=== PATIENT | female | born 1955 | race Caucasian/White ===

== ENCOUNTER 2020-12-19 16:12 | Inpatient (IN) ==
[2020-12-19] MEDS ORDERED: Acetaminophen 325 MG TABLET PO PRN (20:18)
[2020-12-19] MEDS ORDERED: Naloxone 0.4 MG/ML INJ IVP PRN (20:18)
[2020-12-19] MEDS ORDERED: Ondansetron 4 MG/2 ML VIAL IVP PRN (20:18)
[2020-12-19] MEDS ORDERED: Ipratropium/Albuterol Neb 3 ML IH PRN (20:20)
[2020-12-19 20:43] LABS: ABG Base Excess 13 mEq/L (-2 to 3); ABG HCO3 42 mEq/L (21-27); ABG Oxygen Saturation 97 % (95-98); ABG PCO2 73 mmHg (35-45); ABG PH 7.37 pH Units (7.32-7.45); ABG PO2 94 mmHg (85-104); ABG TCO2 44 mEq/L (20-26)
[2020-12-19 20:49] LABS: Hematocrit 42.3 % (35.3-44.9); Hemoglobin 13.1 g/dL (11.5-15.4); Mean Corpuscular Hemoglobin 30.5 pg (28.0-33.3); Mean Corpuscular Volume 98.4 fL (83.0-100.0); Mean Platelet Volume 8.6 fL (9.4-12.4); Platelet Count 317 K/mcL (140-400); Red Cell Distribution Width 13.2 % (11.5-14.5)
[2020-12-19 20:56] LABS: INR 1.3; Prothrombin Time 14.7 Seconds (9.4-12.1)
[2020-12-19 21:13] LABS: Monocytes # 0.5 K/mcL (0.0-1.3); Neutrophils # 6.4 K/mcL (1.6-8.9); Platelet Estimate Normal (Normal); Toxic Granulation Present (Not Present)
[2020-12-19 21:16] LABS: Alanine Aminotransferase 8 Units/L (7-52); Albumin 3.8 g/dL (3.5-5.7); Alkaline Phosphatase 57 Units/L (34-104); Aspartate Amino Transferase 13 Units/L (13-39); BUN/Creatinine Ratio 61 (6-26); Bilirubin,Total 0.2 mg/dL (0.3-1.0); Blood Urea Nitrogen 33 mg/dL (8-23); Calcium 9.9 mg/dL (8.6-10.3); Carbon Dioxide 37 mEq/L (23-29); Chloride 101 mEq/L (98-107); Globulin 3.9 g/dL (2.4-3.5); Glucose 162 mg/dL (70-105); Magnesium 2.5 mg/dL (1.6-2.6); Osmolality,Calculated 317 (280-300); Sodium 148 mEq/L (136-145); Total Protein 7.7 g/dL (6.4-8.9); Troponin I < 0.03 ng/mL (< 0.04); eGFR For African Americans > 60 (> 60); eGFR For Non-African Americans > 60 (> 60)
[2020-12-19 22:10] LABS: Adenovirus Not Detected (Not Detect); Bordetella Pertussis Not Detected (Not Detect); Chlamydophila pneumoniae Not Detected (Not Detect); Coronavirus 229E Not Detected (Not Detect); Coronavirus HKU1 Not Detected (Not Detect); Coronavirus NL63 Not Detected (Not Detect); Coronavirus OC43 Not Detected (Not Detect); Human Metapneumovirus Not Detected (Not Detect); Human Rhinovirus/Enterovirus Not Detected (Not Detect); Influenza A Subtype 2009 H1 Not Detected (Not Detect); Influenza B Not Detected (Not Detect); Mycoplasma pneumoniae Not Detected (Not Detect); Parainfluenza Virus 1 Not Detected (Not Detect); Parainfluenza Virus 2 Not Detected (Not Detect); Parainfluenza Virus 3 Not Detected (Not Detect); Parainfluenza Virus 4 Not Detected (Not Detect); Respiratory Syncytial Virus Not Detected (Not Detect); SARS-CoV-2 Not Detected (Not Detect)
[2020-12-19 22:25] LABS: Bilirubin,Urine Negative (Negative); Blood,Urine Small (Negative); Clarity,Urine Clear (Clear); Color,Urine Yellow (Yellow); Glucose,Urine (UA) Normal (Normal); Ketones,Urine 40 mg/dL (Negative); Leukocyte Esterase,Urine Negative (Negative); Mucus,Urine Few per lpf (None-Few); Nitrite,Urine Negative (Negative); PH,Urine 6.5 pH Units (5.0-8.0); Protein,Urine 70 mg/dL (Neg-Trace); Specific Gravity,Urine > 1.030 (1.010-1.025); Urobilinogen,Urine Normal (Normal); WBC,Urine 0-3 per hpf (0-3)
[2020-12-19 22:27] LABS: Sodium, Urine 30.1 mEq/L
[2020-12-19 22:35] LABS: Amphetamine Screen,Urine Negative ng/mL (Cutoff=1000); Barbiturate Screen,Urine Negative ng/mL (Cutoff=200); Benzodiazepines Screen,Urine Negative ng/mL (Cutoff=200); Cannabinoid Screen,Urine Negative ng/mL (Cutoff = 50); Cocaine Screen,Urine Negative ng/mL (Cutoff= 300); Opiate Screen,Urine Negative ng/mL (Cutoff=300); Phencyclidine Screen,Urine Negative ng/mL (Cutoff=25)
[2020-12-19] MEDS: methylPREDNISolone 125 MG/2 ML VIAL IVP SCH (22:43)
[2020-12-19] MEDS ORDERED: 0.9 % Sodium Chloride 1,000 ML IVC SCH (22:45)
[2020-12-20 01:53] LABS: Basophils # 0.1 K/mcL (0.0-0.2); Basophils % 1.4 %; Hematocrit 42.2 % (35.3-44.9); Hemoglobin 13.3 g/dL (11.5-15.4); Immature Granulocytes % 3.5 % (0-4); Lymphocytes # 0.9 K/mcL (0.6-4.6); Lymphocytes % 12.6 %; Mean Corpuscular HGB Conc 31.5 g/dL (31.6-35.5); Mean Corpuscular Volume 98.4 fL (83.0-100.0); Mean Platelet Volume 8.5 fL (9.4-12.4); Monocytes # 0.3 K/mcL (0.0-1.3); Monocytes % 3.5 %; Neutrophils # 5.7 K/mcL (1.6-8.9); Platelet Count 336 K/mcL (140-400); Red Blood Count 4.29 M/mcL (3.82-4.97); Red Cell Distribution Width 13.2 % (11.5-14.5); White Blood Count 7.2 K/mcL (4.3-11.1)
[2020-12-20 02:23] LABS: BUN/Creatinine Ratio 67 (6-26); Blood Urea Nitrogen 34 mg/dL (8-23); Calcium 9.6 mg/dL (8.6-10.3); Carbon Dioxide 36 mEq/L (23-29); Chloride 102 mEq/L (98-107); Glucose 171 mg/dL (70-105); Osmolality,Calculated 320 (280-300); Platelet Clumps Few (Not Present); Platelet Estimate Normal (Normal); Potassium 3.9 mEq/L (3.5-5.1); Sodium 149 mEq/L (136-145); Thyroid Stimulating Hormone 0.278 mcIU/mL (0.340-5.600); eGFR For African Americans > 60 (> 60); eGFR For Non-African Americans > 60 (> 60)
[2020-12-20 04:01] LABS: ABG Base Excess 13 mEq/L (-2 to 3); ABG HCO3 40 mEq/L (21-27); ABG Oxygen Saturation 91 % (95-98); ABG PCO2 57 mmHg (35-45); ABG PH 7.45 pH Units (7.32-7.45); ABG PO2 60 mmHg (85-104); ABG TCO2 41 mEq/L (20-26)
[2020-12-20 06:32] LABS: BUN/Creatinine Ratio 70 (6-26); Blood Urea Nitrogen 33 mg/dL (8-23); Calcium 9.7 mg/dL (8.6-10.3); Carbon Dioxide 35 mEq/L (23-29); Glucose 162 mg/dL (70-105); eGFR For African Americans > 60 (> 60); eGFR For Non-African Americans > 60 (> 60)
[2020-12-20 06:56] LABS: Chloride 106 mEq/L (98-107); Osmolality,Calculated 317 (280-300); Potassium 3.6 mEq/L (3.5-5.1); Sodium 148 mEq/L (136-145)
[2020-12-20] MEDS ORDERED: D5% in 0.45% NACL 1,000 ML IVC SCH (07:00)
[2020-12-20 07:09] LABS: Triiodothyronine (T3) Free 2.22 pg/mL (2.50-3.90)
[2020-12-20 07:12] LABS: Triiodothyronine (T3) Total 0.54 ng/mL (0.87-1.78)
[2020-12-20] MEDS: methylPREDNISolone 125 MG/2 ML VIAL IVP SCH ×2 (07:24→15:12)
[2020-12-20] MEDS: cefTRIAXone 1,000 MG in 0.9 % Sodium Chloride Mini Bag 100 ML IVPB SCH (08:46)
[2020-12-20] MEDS: Azithromycin 500 MG in 0.9 % Sodium Chloride 250 ML IVPB SCH (09:48)
[2020-12-20 10:50] LABS: BUN/Creatinine Ratio 71 (6-26); Blood Urea Nitrogen 34 mg/dL (8-23); Calcium 9.4 mg/dL (8.6-10.3); Carbon Dioxide 37 mEq/L (23-29); Chloride 104 mEq/L (98-107); Glucose 184 mg/dL (70-105); Osmolality,Calculated 324 (280-300); Potassium 3.6 mEq/L (3.5-5.1); Sodium 151 mEq/L (136-145); eGFR For African Americans > 60 (> 60); eGFR For Non-African Americans > 60 (> 60)
[2020-12-20] MEDS ORDERED: D5% in Water 1,000 ML IVC PRN (17:08)
[2020-12-20] MEDS ORDERED: *HR* Dextrose 50 % in Water (Vial) 50 ML VIAL IVP PRN (17:08)
[2020-12-20] MEDS ORDERED: Dextrose Gel 15 GM/37.5 ML TUBE PO PRN ×2 (17:08)
[2020-12-20] MEDS ORDERED: Saline Nasal Spray 44 ML BOTTLE NS PRN (17:09)
[2020-12-20] MEDS ORDERED: Ipratropium/Albuterol Neb 3 ML IH PRN (17:14)
[2020-12-20 18:56] LABS: Chloride 106 mEq/L (98-107); Potassium 3.3 mEq/L (3.5-5.1); Sodium 151 mEq/L (136-145)
[2020-12-20 19:04] LABS: BUN/Creatinine Ratio 63 (6-26); Blood Urea Nitrogen 33 mg/dL (8-23); Calcium 9.3 mg/dL (8.6-10.3); Carbon Dioxide 32 mEq/L (23-29); Glucose 240 mg/dL (70-105); Osmolality,Calculated 327 (280-300); eGFR For African Americans > 60 (> 60); eGFR For Non-African Americans > 60 (> 60)
[2020-12-20] MEDS: Ipratropium/Albuterol Neb 3 ML IH SCH ×2 (20:30→23:34)
[2020-12-20] MEDS: Budesonide/Formoterol 160/4.5 1 PUFF INH IH SCH (20:30)
[2020-12-20] MEDS: D5% in Water 1,000 ML IVC SCH (22:35)
[2020-12-20] MEDS: Nystatin SUSP 5 ML UD.LIQ PO SCH (22:43)
[2020-12-20] MEDS: Chlorhexidine Rinse 15 ML MOUTHWASH MM SCH (22:43)
[2020-12-21] MEDS: Artificial Tears SOLN 15 ML BOTTLE BOTH EYES SCH ×3 (00:16→21:22)
[2020-12-21] MEDS: methylPREDNISolone 125 MG/2 ML VIAL IVP SCH ×4 (00:17→23:25)
[2020-12-21 00:44] LABS: BUN/Creatinine Ratio 61 (6-26); Blood Urea Nitrogen 33 mg/dL (8-23); Calcium 8.7 mg/dL (8.6-10.3); Carbon Dioxide 38 mEq/L (23-29); Chloride 106 mEq/L (98-107); Glucose 173 mg/dL (70-105); Osmolality,Calculated 319 (280-300); Potassium 3.6 mEq/L (3.5-5.1); Sodium 149 mEq/L (136-145); eGFR For African Americans > 60 (> 60); eGFR For Non-African Americans > 60 (> 60)
[2020-12-21 02:57] LABS: Basophils % 0.1 %; Hematocrit 39.9 % (35.3-44.9); Hemoglobin 12.3 g/dL (11.5-15.4); Immature Granulocytes % 6.3 % (0-4); Lymphocytes # 1.4 K/mcL (0.6-4.6); Lymphocytes % 13.6 %; Mean Corpuscular HGB Conc 30.8 g/dL (31.6-35.5); Mean Corpuscular Hemoglobin 30.9 pg (28.0-33.3); Mean Corpuscular Volume 100.3 fL (83.0-100.0); Mean Platelet Volume 8.5 fL (9.4-12.4); Monocytes # 0.6 K/mcL (0.0-1.3); Monocytes % 5.2 %; Platelet Count 332 K/mcL (140-400); Red Blood Count 3.98 M/mcL (3.82-4.97); Red Cell Distribution Width 13.2 % (11.5-14.5); Segmented Neutrophils % 74.8 %; White Blood Count 10.6 K/mcL (4.3-11.1)
[2020-12-21 03:12] LABS: Neutrophils # 7.9 K/mcL (1.6-8.9)
[2020-12-21 03:13] LABS: Alanine Aminotransferase 7 Units/L (7-52); Albumin 3.3 g/dL (3.5-5.7); Alkaline Phosphatase 44 Units/L (34-104); Aspartate Amino Transferase 13 Units/L (13-39); BUN/Creatinine Ratio 62 (6-26); Bilirubin,Total 0.2 mg/dL (0.3-1.0); Blood Urea Nitrogen 33 mg/dL (8-23); Calcium 8.7 mg/dL (8.6-10.3); Carbon Dioxide 36 mEq/L (23-29); Chloride 108 mEq/L (98-107); Globulin 3.2 g/dL (2.4-3.5); Glucose 175 mg/dL (70-105); Magnesium 2.2 mg/dL (1.6-2.6); Osmolality,Calculated 318 (280-300); Potassium 3.7 mEq/L (3.5-5.1); Sodium 148 mEq/L (136-145); Total Protein 6.5 g/dL (6.4-8.9); eGFR For African Americans > 60 (> 60); eGFR For Non-African Americans > 60 (> 60)
[2020-12-21] MEDS: Ipratropium/Albuterol Neb 3 ML IH SCH ×6 (03:56→23:39)
[2020-12-21 04:41] LABS: Platelet Estimate Normal (Normal)
[2020-12-21] MEDS: *HR* Enoxaparin 40 MG/0.4 ML SYRINGE SQ SCH (05:42)
[2020-12-21] MEDS: Budesonide/Formoterol 160/4.5 1 PUFF INH IH SCH ×2 (07:41→19:21)
[2020-12-21] MEDS: cefTRIAXone 1,000 MG in 0.9 % Sodium Chloride Mini Bag 100 ML IVPB SCH (08:21)
[2020-12-21] MEDS: BuPROPion XL (24 HR) 150 MG TABLET PO SCH (08:29)
[2020-12-21] MEDS: Nystatin SUSP 5 ML UD.LIQ PO SCH ×4 (08:29→21:21)
[2020-12-21] MEDS: Chlorhexidine Rinse 15 ML MOUTHWASH MM SCH ×2 (08:29→21:21)
[2020-12-21] MEDS: Levothyroxine 25 MCG TABLET PO SCH (08:30)
[2020-12-21] MEDS: Nicotine 14 MG PATCH.TD24 TD SCH (08:31)
[2020-12-21] MEDS: Fluticasone Propionate Nasal 50 MCG/SPRAY BOTTLE NS SCH (08:32)
[2020-12-21] MEDS: Azithromycin 500 MG in 0.9 % Sodium Chloride 250 ML IVPB SCH (08:46)
[2020-12-21 12:39] LABS: BUN/Creatinine Ratio 49 (6-26); Blood Urea Nitrogen 29 mg/dL (8-23); Calcium 8.3 mg/dL (8.6-10.3); Carbon Dioxide 36 mEq/L (23-29); Chloride 104 mEq/L (98-107); Glucose 187 mg/dL (70-105); Osmolality,Calculated 315 (280-300); Potassium 3.3 mEq/L (3.5-5.1); Sodium 147 mEq/L (136-145); eGFR For African Americans > 60 (> 60); eGFR For Non-African Americans > 60 (> 60)
[2020-12-21] MEDS ORDERED: Melatonin 3 MG TABLET PO PRN (16:36)
[2020-12-21] MEDS: Doxycycline 100 MG in 0.9 % Sodium Chloride Mini Bag 100 ML IVPB SCH (17:00)
[2020-12-21] MEDS: D5% in Water 1,000 ML IVC SCH (17:05)
[2020-12-21 18:14] LABS: BUN/Creatinine Ratio 47 (6-26); Blood Urea Nitrogen 28 mg/dL (8-23); Calcium 8.3 mg/dL (8.6-10.3); Carbon Dioxide 35 mEq/L (23-29); Chloride 102 mEq/L (98-107); Glucose 183 mg/dL (70-105); Osmolality,Calculated 308 (280-300); Potassium 3.2 mEq/L (3.5-5.1); Sodium 144 mEq/L (136-145); eGFR For African Americans > 60 (> 60); eGFR For Non-African Americans > 60 (> 60)
[2020-12-21] MEDS: Lactobacillus 1 EACH CAP.SPRINK PO SCH (21:21)
[2020-12-21 23:47] LABS: BUN/Creatinine Ratio 48 (6-26); Blood Urea Nitrogen 23 mg/dL (8-23); Calcium 7.8 mg/dL (8.6-10.3); Carbon Dioxide 32 mEq/L (23-29); Chloride 103 mEq/L (98-107); Glucose 162 mg/dL (70-105); Osmolality,Calculated 303 (280-300); Potassium 3.6 mEq/L (3.5-5.1); Sodium 143 mEq/L (136-145); eGFR For African Americans > 60 (> 60); eGFR For Non-African Americans > 60 (> 60)
[2020-12-22] MEDS: Ipratropium/Albuterol Neb 3 ML IH SCH ×6 (03:29→23:36)
[2020-12-22] MEDS: *HR* Enoxaparin 40 MG/0.4 ML SYRINGE SQ SCH (05:32)
[2020-12-22] MEDS: Doxycycline 100 MG in 0.9 % Sodium Chloride Mini Bag 100 ML IVPB SCH ×2 (05:33→16:43)
[2020-12-22 07:00] LABS: Hematocrit 38.1 % (35.3-44.9); Hemoglobin 12.3 g/dL (11.5-15.4); Lymphocytes # 1.5 K/mcL (0.6-4.6); Mean Corpuscular HGB Conc 32.3 g/dL (31.6-35.5); Mean Corpuscular Hemoglobin 30.8 pg (28.0-33.3); Mean Corpuscular Volume 95.3 fL (83.0-100.0); Mean Platelet Volume 8.6 fL (9.4-12.4); Platelet Count 286 K/mcL (140-400); White Blood Count 12.8 K/mcL (4.3-11.1)
[2020-12-22 07:20] LABS: BUN/Creatinine Ratio 45 (6-26); Blood Urea Nitrogen 22 mg/dL (8-23); Calcium 7.9 mg/dL (8.6-10.3); Carbon Dioxide 33 mEq/L (23-29); Chloride 102 mEq/L (98-107); Glucose 153 mg/dL (70-105); Osmolality,Calculated 298 (280-300); Potassium 3.7 mEq/L (3.5-5.1); Sodium 141 mEq/L (136-145); eGFR For African Americans > 60 (> 60); eGFR For Non-African Americans > 60 (> 60)
[2020-12-22 07:21] LABS: Magnesium 1.8 mg/dL (1.6-2.6)
[2020-12-22 07:52] LABS: Monocytes # 0.8 K/mcL (0.0-1.3)
[2020-12-22 07:53] LABS: Platelet Estimate Normal (Normal)
[2020-12-22] MEDS: Budesonide/Formoterol 160/4.5 1 PUFF INH IH SCH ×2 (08:02→20:12)
[2020-12-22] MEDS: BuPROPion XL (24 HR) 150 MG TABLET PO SCH (09:34)
[2020-12-22] MEDS: Multivit/Ca/Min/Fe/FA 1 TAB TABLET PO SCH (09:34)
[2020-12-22] MEDS: Nicotine 14 MG PATCH.TD24 TD SCH (09:34)
[2020-12-22] MEDS: Lactobacillus 1 EACH CAP.SPRINK PO SCH ×2 (09:35→22:05)
[2020-12-22] MEDS: Nystatin SUSP 5 ML UD.LIQ PO SCH ×4 (09:35→22:05)
[2020-12-22] MEDS: Chlorhexidine Rinse 15 ML MOUTHWASH MM SCH ×2 (09:35→22:05)
[2020-12-22] MEDS: Levothyroxine 25 MCG TABLET PO SCH (09:35)
[2020-12-22] MEDS: Azithromycin 500 MG in 0.9 % Sodium Chloride 250 ML IVPB SCH (09:40)
[2020-12-22] MEDS: cefTRIAXone 1,000 MG in 0.9 % Sodium Chloride Mini Bag 100 ML IVPB SCH (09:41)
[2020-12-22] MEDS: Fluticasone Propionate Nasal 50 MCG/SPRAY BOTTLE NS SCH (09:45)
[2020-12-22] MEDS: Artificial Tears SOLN 15 ML BOTTLE BOTH EYES SCH ×2 (09:45→22:05)
[2020-12-22] MEDS: methylPREDNISolone 125 MG/2 ML VIAL IVP SCH ×3 (09:50→23:40)
[2020-12-22] MEDS: Calcium Gluconate 1gm/50mL 1 GM/50 ML BAG IVPB SCH ×2 (11:11→13:00)
[2020-12-22 14:00] LABS: BUN/Creatinine Ratio 38 (6-26); Blood Urea Nitrogen 21 mg/dL (8-23); Calcium 7.8 mg/dL (8.6-10.3); Carbon Dioxide 31 mEq/L (23-29); Chloride 101 mEq/L (98-107); Glucose 150 mg/dL (70-105); Osmolality,Calculated 296 (280-300); Potassium 3.7 mEq/L (3.5-5.1); Sodium 140 mEq/L (136-145); eGFR For African Americans > 60 (> 60); eGFR For Non-African Americans > 60 (> 60)
[2020-12-22 18:09] LABS: BUN/Creatinine Ratio 36 (6-26); Blood Urea Nitrogen 19 mg/dL (8-23); Calcium 7.9 mg/dL (8.6-10.3); Carbon Dioxide 32 mEq/L (23-29); Chloride 100 mEq/L (98-107); Glucose 99 mg/dL (70-105); Osmolality,Calculated 292 (280-300); Potassium 3.9 mEq/L (3.5-5.1); Sodium 140 mEq/L (136-145); eGFR For African Americans > 60 (> 60); eGFR For Non-African Americans > 60 (> 60)
[2020-12-23 00:35] LABS: Hematocrit 37.8 % (35.3-44.9); Hemoglobin 12.3 g/dL (11.5-15.4); Mean Corpuscular HGB Conc 32.5 g/dL (31.6-35.5); Mean Corpuscular Hemoglobin 30.5 pg (28.0-33.3); Mean Corpuscular Volume 93.8 fL (83.0-100.0); Mean Platelet Volume 8.5 fL (9.4-12.4); Monocytes # 0.3 K/mcL (0.0-1.3); Nucleated Red Blood Cells 0.1 /100 WBC (0); Platelet Count 262 K/mcL (140-400); Red Blood Count 4.03 M/mcL (3.82-4.97); Red Cell Distribution Width 12.8 % (11.5-14.5); White Blood Count 14.6 K/mcL (4.3-11.1)
[2020-12-23 00:52] LABS: BUN/Creatinine Ratio 36 (6-26); Blood Urea Nitrogen 17 mg/dL (8-23); Calcium 7.8 mg/dL (8.6-10.3); Carbon Dioxide 30 mEq/L (23-29); Chloride 101 mEq/L (98-107); Glucose 134 mg/dL (70-105); Osmolality,Calculated 292 (280-300); Potassium 4.3 mEq/L (3.5-5.1); Sodium 139 mEq/L (136-145); eGFR For African Americans > 60 (> 60); eGFR For Non-African Americans > 60 (> 60)
[2020-12-23 00:53] LABS: Magnesium 1.7 mg/dL (1.6-2.6); Phosphorous 2.1 mg/dL (2.7-4.5)
[2020-12-23 01:17] LABS: Lymphocytes # 1.5 K/mcL (0.6-4.6); Neutrophils # 12.9 K/mcL (1.6-8.9); Platelet Estimate Normal (Normal); Smudge Cells Present (Not Present); Toxic Granulation Present (Not Present)
[2020-12-23] MEDS: Ipratropium/Albuterol Neb 3 ML IH SCH ×4 (03:58→16:03)
[2020-12-23] MEDS: Doxycycline 100 MG in 0.9 % Sodium Chloride Mini Bag 100 ML IVPB SCH (05:58)
[2020-12-23] MEDS: *HR* Enoxaparin 40 MG/0.4 ML SYRINGE SQ SCH (05:58)
[2020-12-23 06:31] VITALS: BP 135/85
[2020-12-23] MEDS: Budesonide/Formoterol 160/4.5 1 PUFF INH IH SCH (07:28)
[2020-12-23] MEDS: Azithromycin 500 MG in 0.9 % Sodium Chloride 250 ML IVPB SCH (09:44)
[2020-12-23] MEDS: methylPREDNISolone 125 MG/2 ML VIAL IVP SCH (09:45)
[2020-12-23] MEDS: cefTRIAXone 1,000 MG in 0.9 % Sodium Chloride Mini Bag 100 ML IVPB SCH ×2 (09:47→11:45)
[2020-12-23] MEDS: Chlorhexidine Rinse 15 ML MOUTHWASH MM SCH (09:56)
[2020-12-23] MEDS: Fluticasone Propionate Nasal 50 MCG/SPRAY BOTTLE NS SCH (09:57)
[2020-12-23] MEDS: Nystatin SUSP 5 ML UD.LIQ PO SCH ×2 (09:57→13:49)
[2020-12-23] MEDS: Lactobacillus 1 EACH CAP.SPRINK PO SCH (09:58)
[2020-12-23] MEDS: Multivit/Ca/Min/Fe/FA 1 TAB TABLET PO SCH (09:59)
[2020-12-23] MEDS: BuPROPion XL (24 HR) 150 MG TABLET PO SCH (09:59)
[2020-12-23] MEDS: Levothyroxine 25 MCG TABLET PO SCH (09:59)
[2020-12-23] MEDS: Nicotine 14 MG PATCH.TD24 TD SCH (10:01)
[2020-12-23] MEDS: Artificial Tears SOLN 15 ML BOTTLE BOTH EYES SCH (11:46)
[2020-12-23] MEDS: Calcium Gluconate 1gm/50mL 1 GM/50 ML BAG IVPB SCH ×2 (13:47→13:48)
== END 2020-12-23 16:27 | disposition home health service (06) | DRG 177 ==
LOC: 3ANU → SUATTDRO 20:12
PROVIDERS: ADMIT Internal Medicine; ATTEND Internal Medicine

== ENCOUNTER 2021-06-17 10:10 | Inpatient (IN) ==
[2021-06-17] MEDS ORDERED: Ipratropium/Albuterol Neb 3 ML IH ONE (10:22)
[2021-06-17 10:57] LABS: Hematocrit 41.7 % (35.3-44.9); Hemoglobin 13.4 g/dL (11.5-15.4); Mean Corpuscular HGB Conc 32.1 g/dL (31.6-35.5); Mean Corpuscular Hemoglobin 29.3 pg (28.0-33.3); Mean Platelet Volume 8.9 fL (9.4-12.4); Platelet Count 341 K/mcL (140-400); Red Blood Count 4.58 M/mcL (3.82-4.97); Red Cell Distribution Width 12.3 % (11.5-14.5); White Blood Count 7.6 K/mcL (4.3-11.1)
[2021-06-17] MEDS ORDERED: *HR* LORazepam 2 MG/ML VIAL IVP ONE (11:15)
[2021-06-17 11:18] LABS: Alanine Aminotransferase 15 Units/L (7-52); Alkaline Phosphatase 49 Units/L (34-104); Aspartate Amino Transferase 34 Units/L (13-39); BUN/Creatinine Ratio 55 (6-26); Bilirubin,Direct 0.1 mg/dL (0.0-0.2); Bilirubin,Indirect 0.4 mg/dL (0.0-1.0); Bilirubin,Total 0.5 mg/dL (0.3-1.0); Blood Urea Nitrogen 37 mg/dL (8-23); Calcium 10.1 mg/dL (8.6-10.3); Carbon Dioxide 32 mEq/L (23-29); Chloride 102 mEq/L (98-107); Globulin 3.9 g/dL (2.4-3.5); Glucose 146 mg/dL (70-105); Osmolality,Calculated 309 (280-300); Potassium 3.3 mEq/L (3.5-5.1); Sodium 144 mEq/L (136-145); Total Protein 7.9 g/dL (6.4-8.9); Troponin I < 0.03 ng/mL (< 0.04); eGFR For African Americans > 60 (> 60); eGFR For Non-African Americans > 60 (> 60)
[2021-06-17] MEDS ORDERED: Naloxone 0.4 MG/ML INJ IVP PRN (12:29)
[2021-06-17] MEDS ORDERED: Dextrose Gel 15 GM/37.5 ML TUBE PO PRN ×2 (12:34)
[2021-06-17] MEDS ORDERED: *HR* Dextrose 50 % in Water (Syg) 50 ML SYRINGE IVP PRN (12:34)
[2021-06-17] MEDS ORDERED: D5% in Water 1,000 ML IVC PRN (12:34)
[2021-06-17 13:05] LABS: Lactate Dehydrogenase 437 Units/L (140-271)
[2021-06-17 13:08] LABS: C-Reactive Protein 114 mg/L (Less than 10)
[2021-06-17 13:12] LABS: VBG HCO3 31 mEq/L (21-27); VBG PCO2 52 mmHg (41-51); VBG PH 7.39 pH Units (7.32-7.42); VBG PO2 28 mmHg (25-50)
[2021-06-17 13:16] LABS: Ferritin > 1500 ng/mL (10-120)
[2021-06-17] MEDS: Furosemide 20 MG/2 ML VIAL IVP SCH (14:01)
[2021-06-17 14:16] LABS: Monocytes # 0.8 K/mcL (0.0-1.3); Neutrophils # 5.6 K/mcL (1.6-8.9); Platelet Estimate Normal (Normal); Toxic Granulation Present (Not Present)
[2021-06-17 14:17] LABS: Bilirubin,Urine Negative (Negative); Blood,Urine Negative (Negative); Clarity,Urine Clear (Clear); Color,Urine Yellow (Yellow); Glucose,Urine (UA) Normal (Normal); Ketones,Urine Negative (Negative); Leukocyte Esterase,Urine Negative (Negative); Mucus,Urine Few per lpf (None-Few); Nitrite,Urine Negative (Negative); PH,Urine 6.5 pH Units (5.0-8.0); Protein,Urine 70 mg/dL (Neg-Trace); RBC,Urine 0-3 per hpf (0-3); Specific Gravity,Urine 1.028 (1.010-1.025); Urobilinogen,Urine Normal (Normal); WBC,Urine 0-3 per hpf (0-3)
[2021-06-17 14:47] LABS: ABG Base Excess 5 mEq/L (-2 to 3); ABG HCO3 29 mEq/L (21-27); ABG Oxygen Saturation 91 % (95-98); ABG PCO2 42 mmHg (35-45); ABG PH 7.46 pH Units (7.32-7.45); ABG PO2 57 mmHg (85-104); ABG TCO2 31 mEq/L (20-26)
[2021-06-17] MEDS: Ipratropium 1 PUFF INHALER IH SCH ×3 (14:50→20:15)
[2021-06-17 15:12] LABS: Adenovirus Not Detected (Not Detect); Coronavirus 229E Not Detected (Not Detect); Coronavirus HKU1 Not Detected (Not Detect); Coronavirus NL63 Not Detected (Not Detect); Coronavirus OC43 Not Detected (Not Detect)
[2021-06-17 15:16] LABS: Bordetella Pertussis Not Detected (Not Detect); Chlamydophila pneumoniae Not Detected (Not Detect); Human Metapneumovirus Not Detected (Not Detect); Human Rhinovirus/Enterovirus Not Detected (Not Detect); Influenza A Subtype 2009 H1 Not Detected (Not Detect); Influenza B Not Detected (Not Detect); Parainfluenza Virus 1 Not Detected (Not Detect); Parainfluenza Virus 2 Not Detected (Not Detect); Parainfluenza Virus 3 Not Detected (Not Detect); Parainfluenza Virus 4 Not Detected (Not Detect); Respiratory Syncytial Virus Not Detected (Not Detect); SARS-CoV-2 DETECTED (Not Detect)
[2021-06-17 15:17] LABS: Mycoplasma pneumoniae Not Detected (Not Detect)
[2021-06-17] MEDS ORDERED: Isovue-370 500 ML BOTTLE IVP ONE (17:26)
[2021-06-17] MEDS: Artificial Tears SOLN 15 ML BOTTLE BOTH EYES SCH ×2 (17:53→21:43)
[2021-06-17] MEDS: Saliva Stimulant 44.3ml BOTTLE PO SCH ×3 (17:54→21:56)
[2021-06-17] MEDS: Saline Nasal Spray 44 ML BOTTLE NS SCH ×3 (17:54→21:56)
[2021-06-17] MEDS ORDERED: Remdesivir 200 MG in 0.9 % Sodium Chloride 100 ML IVPB ONE (18:00)
[2021-06-17 20:08] LABS: Acetaminophen < 10 mcg/mL (10-20); Ethanol < 10 mg/dL (Less than 10); Salicylate < 2.5 mg/dL (15.0-30.0)
[2021-06-17] MEDS: Budesonide/Formoterol 160/4.5 1 PUFF INH IH SCH (20:15)
[2021-06-17] MEDS: Chlorhexidine Rinse 15 ML MOUTHWASH MM SCH (21:17)
[2021-06-18] MEDS: Ipratropium 1 PUFF INHALER IH SCH ×6 (00:08→20:57)
[2021-06-18 00:55] LABS: Amphetamine Screen,Urine Negative ng/mL (Cutoff=1000); Barbiturate Screen,Urine Negative ng/mL (Cutoff=200); Benzodiazepines Screen,Urine Negative ng/mL (Cutoff=200); Cannabinoid Screen,Urine Negative ng/mL (Cutoff = 50); Cocaine Screen,Urine Negative ng/mL (Cutoff= 300); Opiate Screen,Urine Positive ng/mL (Cutoff=300); Phencyclidine Screen,Urine Negative ng/mL (Cutoff=25)
[2021-06-18] MEDS: *HR* Enoxaparin 40 MG/0.4 ML SYRINGE SQ SCH (06:22)
[2021-06-18] MEDS: Budesonide/Formoterol 160/4.5 1 PUFF INH IH SCH ×2 (07:28→21:00)
[2021-06-18] MEDS: Cholecalciferol (D-3) 1,000 UNIT (25MCG) TABLET PO SCH (09:20)
[2021-06-18] MEDS: Chlorhexidine Rinse 15 ML MOUTHWASH MM SCH ×2 (09:21→20:59)
[2021-06-18] MEDS: Furosemide 20 MG/2 ML VIAL IVP SCH (09:21)
[2021-06-18] MEDS: Saline Nasal Spray 44 ML BOTTLE NS SCH ×4 (09:21→20:59)
[2021-06-18] MEDS: Artificial Tears SOLN 15 ML BOTTLE BOTH EYES SCH ×4 (09:22→20:58)
[2021-06-18] MEDS: Saliva Stimulant 44.3ml BOTTLE PO SCH ×4 (09:22→20:58)
[2021-06-18 10:57] LABS: Hematocrit 43.6 % (35.3-44.9); Hemoglobin 14.3 g/dL (11.5-15.4); Lymphocytes # 1.9 K/mcL (0.6-4.6); Mean Corpuscular HGB Conc 32.8 g/dL (31.6-35.5); Mean Corpuscular Hemoglobin 30.3 pg (28.0-33.3); Mean Corpuscular Volume 92.4 fL (83.0-100.0); Mean Platelet Volume 8.8 fL (9.4-12.4); Platelet Count 386 K/mcL (140-400); Red Blood Count 4.72 M/mcL (3.82-4.97); Red Cell Distribution Width 12.6 % (11.5-14.5); White Blood Count 8.7 K/mcL (4.3-11.1)
[2021-06-18 11:08] LABS: Prothrombin Time 22.6 Seconds (9.4-12.1)
[2021-06-18 11:17] LABS: Alanine Aminotransferase 17 Units/L (7-52); Alkaline Phosphatase 54 Units/L (34-104); Aspartate Amino Transferase 40 Units/L (13-39); BUN/Creatinine Ratio 62 (6-26); Bilirubin,Total 0.4 mg/dL (0.3-1.0); Blood Urea Nitrogen 40 mg/dL (8-23); Calcium 9.8 mg/dL (8.6-10.3); Carbon Dioxide 30 mEq/L (23-29); Chloride 106 mEq/L (98-107); Glucose 105 mg/dL (70-105); Lactate Dehydrogenase 459 Units/L (140-271); Magnesium 2.4 mg/dL (1.6-2.6); Osmolality,Calculated 314 (280-300); Phosphorous 3.6 mg/dL (2.7-4.5); Potassium 3.8 mEq/L (3.5-5.1); Sodium 147 mEq/L (136-145); eGFR For African Americans > 60 (> 60); eGFR For Non-African Americans > 60 (> 60)
[2021-06-18 11:22] LABS: Monocytes # 0.4 K/mcL (0.0-1.3); Neutrophils # 6.3 K/mcL (1.6-8.9)
[2021-06-18 11:23] LABS: Platelet Estimate Normal (Normal)
[2021-06-18 11:24] LABS: Thyroid Stimulating Hormone 0.542 mcIU/mL (0.340-5.600)
[2021-06-18 11:40] LABS: Folate 10.4 ng/mL (3.0-16.0)
[2021-06-18 11:51] LABS: Vitamin B12 > 1500 pg/mL (250-1100)
[2021-06-18 13:43] LABS: C-Reactive Protein 78 mg/L (Less than 10); Ferritin > 1500 ng/mL (10-120)
[2021-06-18] MEDS: Remdesivir 100 MG in 0.9 % Sodium Chloride 100 ML IVPB SCH (17:04)
[2021-06-18 22:13] LABS: VBG HCO3 30 mEq/L (21-27); VBG PCO2 46 mmHg (41-51); VBG PH 7.42 pH Units (7.32-7.42); VBG PO2 46 mmHg (25-50)
[2021-06-19] MEDS: Ipratropium 1 PUFF INHALER IH SCH ×7 (00:55→23:53)
[2021-06-19 05:31] LABS: INR 2.1; Prothrombin Time 23.5 Seconds (9.4-12.1)
[2021-06-19 05:45] LABS: Alanine Aminotransferase 17 Units/L (7-52); Alkaline Phosphatase 50 Units/L (34-104); Aspartate Amino Transferase 30 Units/L (13-39); BUN/Creatinine Ratio 89 (6-26); Bilirubin,Total 0.5 mg/dL (0.3-1.0); Blood Urea Nitrogen 64 mg/dL (8-23); Calcium 9.4 mg/dL (8.6-10.3); Carbon Dioxide 30 mEq/L (23-29); Chloride 110 mEq/L (98-107); Glucose 92 mg/dL (70-105); Osmolality,Calculated 330 (280-300); Potassium 3.7 mEq/L (3.5-5.1); Sodium 151 mEq/L (136-145); eGFR For African Americans > 60 (> 60); eGFR For Non-African Americans > 60 (> 60)
[2021-06-19] MEDS: *HR* Enoxaparin 40 MG/0.4 ML SYRINGE SQ SCH (06:12)
[2021-06-19] MEDS ORDERED: D5% in Water 1,000 ML IVC SCH (07:15)
[2021-06-19] MEDS ORDERED: Famotidine 20 MG TABLET PO SCH (07:30)
[2021-06-19] MEDS: BuPROPion XL (24 HR) 150 MG TABLET PO SCH (07:48)
[2021-06-19] MEDS: PARoxetine 20 MG TABLET PO SCH (07:48)
[2021-06-19] MEDS: Cholecalciferol (D-3) 1,000 UNIT (25MCG) TABLET PO SCH (07:48)
[2021-06-19] MEDS: Artificial Tears SOLN 15 ML BOTTLE BOTH EYES SCH ×4 (07:49→22:42)
[2021-06-19] MEDS: Chlorhexidine Rinse 15 ML MOUTHWASH MM SCH ×2 (07:49→21:59)
[2021-06-19] MEDS: Saline Nasal Spray 44 ML BOTTLE NS SCH ×4 (07:49→22:00)
[2021-06-19] MEDS: Saliva Stimulant 44.3ml BOTTLE PO SCH ×4 (07:49→22:00)
[2021-06-19] MEDS: Budesonide/Formoterol 160/4.5 1 PUFF INH IH SCH ×2 (07:57→20:10)
[2021-06-19] MEDS ORDERED: NON-FORMULARY MEDICATION 1 EACH EACH (Esomeprazole Magnesium [Nexium] 40 MG Capsule.Dr) PO SCH (09:00)
[2021-06-19] MEDS ORDERED: NON-FORMULARY MEDICATION 1 EACH EACH (Roflumilast [Daliresp] 500 MCG Tablet) PO SCH (09:00)
[2021-06-19] MEDS: QUEtiapine Fumarate 25 MG TABLET PO SCH ×2 (12:55→22:42)
[2021-06-19] MEDS: D5% in Water 1,000 ML IVC SCH (12:56)
[2021-06-19] MEDS: Remdesivir 100 MG in 0.9 % Sodium Chloride 100 ML IVPB SCH (17:12)
[2021-06-19 17:39] LABS: BUN/Creatinine Ratio 86 (6-26); Blood Urea Nitrogen 55 mg/dL (8-23); Carbon Dioxide 29 mEq/L (23-29); Chloride 107 mEq/L (98-107); Glucose 164 mg/dL (70-105); Osmolality,Calculated 319 (280-300); Potassium 3.8 mEq/L (3.5-5.1); Sodium 145 mEq/L (136-145); eGFR For African Americans > 60 (> 60); eGFR For Non-African Americans > 60 (> 60)
[2021-06-20] MEDS: Ipratropium 1 PUFF INHALER IH SCH ×5 (04:30→20:42)
[2021-06-20] MEDS: *HR* Enoxaparin 40 MG/0.4 ML SYRINGE SQ SCH (06:33)
[2021-06-20 06:55] LABS: Hematocrit 47.7 % (35.3-44.9); Hemoglobin 15.5 g/dL (11.5-15.4); Mean Corpuscular HGB Conc 32.5 g/dL (31.6-35.5); Mean Corpuscular Hemoglobin 30.5 pg (28.0-33.3); Mean Corpuscular Volume 93.7 fL (83.0-100.0); Mean Platelet Volume 8.7 fL (9.4-12.4); Platelet Count 493 K/mcL (140-400); Red Blood Count 5.09 M/mcL (3.82-4.97); Red Cell Distribution Width 12.5 % (11.5-14.5); White Blood Count 11.8 K/mcL (4.3-11.1)
[2021-06-20 07:16] LABS: Alanine Aminotransferase 14 Units/L (7-52); Albumin 3.9 g/dL (3.5-5.7); Alkaline Phosphatase 51 Units/L (34-104); Aspartate Amino Transferase 26 Units/L (13-39); BUN/Creatinine Ratio 69 (6-26); Bilirubin,Total 0.5 mg/dL (0.3-1.0); Blood Urea Nitrogen 57 mg/dL (8-23); Calcium 9.2 mg/dL (8.6-10.3); Carbon Dioxide 32 mEq/L (23-29); Chloride 110 mEq/L (98-107); Globulin 3.8 g/dL (2.4-3.5); Glucose 91 mg/dL (70-105); Osmolality,Calculated 325 (280-300); Sodium 150 mEq/L (136-145); Total Protein 7.7 g/dL (6.4-8.9); eGFR For African Americans > 60 (> 60); eGFR For Non-African Americans > 60 (> 60)
[2021-06-20 07:21] LABS: INR 2.3; Prothrombin Time 25.9 Seconds (9.4-12.1)
[2021-06-20] MEDS: Budesonide/Formoterol 160/4.5 1 PUFF INH IH SCH ×2 (07:56→20:44)
[2021-06-20] MEDS: Artificial Tears SOLN 15 ML BOTTLE BOTH EYES SCH ×4 (08:00→21:51)
[2021-06-20] MEDS: D5% in Water 1,000 ML IVC SCH ×4 (08:00→21:51)
[2021-06-20] MEDS: Saliva Stimulant 44.3ml BOTTLE PO SCH ×4 (08:01→20:50)
[2021-06-20] MEDS: Saline Nasal Spray 44 ML BOTTLE NS SCH ×4 (08:01→20:50)
[2021-06-20] MEDS: Chlorhexidine Rinse 15 ML MOUTHWASH MM SCH ×2 (08:02→20:50)
[2021-06-20 08:25] LABS: ABG Base Excess 7 mEq/L (-2 to 3); ABG Chloride 109 mEq/L (98-107); ABG Glucose 139 mg/dL (60-95); ABG HCO3 30 mEq/L (21-27); ABG Ionized Calcium 1.21 mmol/L (1.15-1.35); ABG Oxygen Saturation 85 % (95-98); ABG PCO2 35 mmHg (35-45); ABG PH 7.54 pH Units (7.32-7.45); ABG PO2 44 mmHg (85-104); ABG TCO2 31 mEq/L (20-26); Blood Gas Modality NIV
[2021-06-20] MEDS: BuPROPion XL (24 HR) 150 MG TABLET PO SCH (10:12)
[2021-06-20] MEDS: QUEtiapine Fumarate 25 MG TABLET PO SCH ×2 (10:12→20:51)
[2021-06-20] MEDS: Cholecalciferol (D-3) 1,000 UNIT (25MCG) TABLET PO SCH (10:12)
[2021-06-20] MEDS: PARoxetine 20 MG TABLET PO SCH (10:12)
[2021-06-20 15:04] LABS: BUN/Creatinine Ratio 75 (6-26); Blood Urea Nitrogen 49 mg/dL (8-23); Calcium 8.5 mg/dL (8.6-10.3); Carbon Dioxide 27 mEq/L (23-29); Chloride 107 mEq/L (98-107); Glucose 228 mg/dL (70-105); Osmolality,Calculated 314 (280-300); Potassium 3.9 mEq/L (3.5-5.1); Sodium 142 mEq/L (136-145); eGFR For African Americans > 60 (> 60); eGFR For Non-African Americans > 60 (> 60)
[2021-06-20] MEDS: Remdesivir 100 MG in 0.9 % Sodium Chloride 100 ML IVPB SCH (18:02)
[2021-06-21] MEDS: Ipratropium 1 PUFF INHALER IH SCH ×6 (00:13→20:24)
[2021-06-21 02:26] LABS: Hematocrit 38.7 % (35.3-44.9); Mean Corpuscular HGB Conc 33.1 g/dL (31.6-35.5); Mean Corpuscular Hemoglobin 30.6 pg (28.0-33.3); Mean Corpuscular Volume 92.6 fL (83.0-100.0); Mean Platelet Volume 8.8 fL (9.4-12.4); Platelet Count 369 K/mcL (140-400); Red Blood Count 4.18 M/mcL (3.82-4.97); Red Cell Distribution Width 12.4 % (11.5-14.5); White Blood Count 7.4 K/mcL (4.3-11.1)
[2021-06-21 02:29] LABS: Hemoglobin 12.8 g/dL (11.5-15.4)
[2021-06-21 02:34] LABS: INR 2.6; Prothrombin Time 29.2 Seconds (9.4-12.1)
[2021-06-21 02:44] LABS: Alanine Aminotransferase 12 Units/L (7-52); Albumin 3.2 g/dL (3.5-5.7); Alkaline Phosphatase 43 Units/L (34-104); Aspartate Amino Transferase 19 Units/L (13-39); BUN/Creatinine Ratio 60 (6-26); Bilirubin,Total 0.4 mg/dL (0.3-1.0); Blood Urea Nitrogen 38 mg/dL (8-23); Calcium 8.1 mg/dL (8.6-10.3); Carbon Dioxide 27 mEq/L (23-29); Chloride 105 mEq/L (98-107); Globulin 3.1 g/dL (2.4-3.5); Glucose 129 mg/dL (70-105); Osmolality,Calculated 301 (280-300); Potassium 3.7 mEq/L (3.5-5.1); Sodium 140 mEq/L (136-145); Total Protein 6.3 g/dL (6.4-8.9); eGFR For African Americans > 60 (> 60); eGFR For Non-African Americans > 60 (> 60)
[2021-06-21] MEDS: D5% in Water 1,000 ML IVC SCH (04:11)
[2021-06-21] MEDS: *HR* Enoxaparin 30 MG/0.3 ML SYRINGE SQ SCH (05:09)
[2021-06-21] MEDS: Budesonide/Formoterol 160/4.5 1 PUFF INH IH SCH ×2 (08:59→20:24)
[2021-06-21] MEDS: Artificial Tears SOLN 15 ML BOTTLE BOTH EYES SCH ×4 (09:46→20:59)
[2021-06-21] MEDS: PARoxetine 20 MG TABLET PO SCH (09:47)
[2021-06-21] MEDS: Cholecalciferol (D-3) 1,000 UNIT (25MCG) TABLET PO SCH (09:47)
[2021-06-21] MEDS: Saliva Stimulant 44.3ml BOTTLE PO SCH ×4 (09:47→20:59)
[2021-06-21] MEDS: Saline Nasal Spray 44 ML BOTTLE NS SCH ×4 (09:47→20:59)
[2021-06-21] MEDS: BuPROPion XL (24 HR) 150 MG TABLET PO SCH (09:48)
[2021-06-21] MEDS: Chlorhexidine Rinse 15 ML MOUTHWASH MM SCH ×2 (09:49→20:58)
[2021-06-21] MEDS: Lacri-Lube 3.5 GM TUBE BOTH EYES SCH ×2 (10:11→20:58)
[2021-06-21] MEDS: QUEtiapine Fumarate 25 MG TABLET PO SCH (12:57)
[2021-06-21] MEDS ORDERED: *HR* Phytonadione 5 MG TABLET PO ONE (15:12)
[2021-06-21] MEDS: Remdesivir 100 MG in 0.9 % Sodium Chloride 100 ML IVPB SCH (17:26)
[2021-06-22] MEDS: Ipratropium 1 PUFF INHALER IH SCH ×6 (00:06→20:03)
[2021-06-22] MEDS: *HR* Enoxaparin 30 MG/0.3 ML SYRINGE SQ SCH (05:44)
[2021-06-22 06:41] LABS: Hematocrit 36.5 % (35.3-44.9); Hemoglobin 12.3 g/dL (11.5-15.4); Mean Corpuscular HGB Conc 33.7 g/dL (31.6-35.5); Mean Corpuscular Hemoglobin 31.1 pg (28.0-33.3); Mean Corpuscular Volume 92.2 fL (83.0-100.0); Mean Platelet Volume 8.8 fL (9.4-12.4); Platelet Count 357 K/mcL (140-400); Red Blood Count 3.96 M/mcL (3.82-4.97); Red Cell Distribution Width 12.1 % (11.5-14.5); White Blood Count 8.3 K/mcL (4.3-11.1)
[2021-06-22 06:49] LABS: INR 1.3; Prothrombin Time 14.4 Seconds (9.4-12.1)
[2021-06-22 07:07] LABS: Monocytes # 0.2 K/mcL (0.0-1.3); Neutrophils # 7.1 K/mcL (1.6-8.9); Platelet Estimate Normal (Normal)
[2021-06-22] MEDS: Cholecalciferol (D-3) 1,000 UNIT (25MCG) TABLET PO SCH (07:49)
[2021-06-22] MEDS: PARoxetine 20 MG TABLET PO SCH (07:49)
[2021-06-22] MEDS: BuPROPion XL (24 HR) 150 MG TABLET PO SCH (07:49)
[2021-06-22] MEDS: Artificial Tears SOLN 15 ML BOTTLE BOTH EYES SCH ×4 (07:50→20:16)
[2021-06-22] MEDS: Lacri-Lube 3.5 GM TUBE BOTH EYES SCH ×2 (07:50→20:17)
[2021-06-22] MEDS: Saline Nasal Spray 44 ML BOTTLE NS SCH ×4 (07:50→20:17)
[2021-06-22] MEDS: Saliva Stimulant 44.3ml BOTTLE PO SCH ×4 (07:50→20:17)
[2021-06-22] MEDS: Chlorhexidine Rinse 15 ML MOUTHWASH MM SCH (07:50)
[2021-06-22 08:19] LABS: Alanine Aminotransferase 9 Units/L (7-52); Albumin 3.2 g/dL (3.5-5.7); Albumin/Globulin Ratio 1.1 (1.1-2.2); Alkaline Phosphatase 40 Units/L (34-104); Aspartate Amino Transferase 18 Units/L (13-39); BUN/Creatinine Ratio 55 (6-26); Bilirubin,Total 0.6 mg/dL (0.3-1.0); Blood Urea Nitrogen 33 mg/dL (8-23); Calcium 8.1 mg/dL (8.6-10.3); Carbon Dioxide 26 mEq/L (23-29); Chloride 104 mEq/L (98-107); Glucose 90 mg/dL (70-105); Osmolality,Calculated 291 (280-300); Potassium 3.8 mEq/L (3.5-5.1); Sodium 137 mEq/L (136-145); Total Protein 6.2 g/dL (6.4-8.9); eGFR For African Americans > 60 (> 60); eGFR For Non-African Americans > 60 (> 60)
[2021-06-22] MEDS: Budesonide/Formoterol 160/4.5 1 PUFF INH IH SCH ×2 (08:30→20:03)
[2021-06-22] MEDS: Acetaminophen 325 MG TABLET PO PRN (15:15)
[2021-06-22] MEDS: Ondansetron 4 MG/2 ML VIAL IVP PRN (15:16)
[2021-06-23] MEDS: Ipratropium 1 PUFF INHALER IH SCH ×6 (00:17→20:34)
[2021-06-23 03:18] LABS: Basophils # 0.1 K/mcL (0.0-0.2); Basophils % 0.5 %; Hematocrit 34.7 % (35.3-44.9); Hemoglobin 12.3 g/dL (11.5-15.4); Immature Granulocytes % 4.4 % (0-4); Lymphocytes # 1.8 K/mcL (0.6-4.6); Lymphocytes % 17.9 %; Mean Corpuscular HGB Conc 35.4 g/dL (31.6-35.5); Mean Corpuscular Hemoglobin 32.5 pg (28.0-33.3); Mean Corpuscular Volume 91.8 fL (83.0-100.0); Mean Platelet Volume 8.8 fL (9.4-12.4); Monocytes # 0.6 K/mcL (0.0-1.3); Monocytes % 6.3 %; Neutrophils # 6.9 K/mcL (1.6-8.9); Platelet Count 351 K/mcL (140-400); Red Blood Count 3.78 M/mcL (3.82-4.97); Segmented Neutrophils % 70.9 %; White Blood Count 9.8 K/mcL (4.3-11.1)
[2021-06-23 03:22] LABS: BUN/Creatinine Ratio 55 (6-26); Blood Urea Nitrogen 34 mg/dL (8-23); Calcium 8.3 mg/dL (8.6-10.3); Carbon Dioxide 27 mEq/L (23-29); Chloride 104 mEq/L (98-107); Glucose 99 mg/dL (70-105); Osmolality,Calculated 290 (280-300); Potassium 4.2 mEq/L (3.5-5.1); Sodium 136 mEq/L (136-145); eGFR For African Americans > 60 (> 60); eGFR For Non-African Americans > 60 (> 60)
[2021-06-23] MEDS: *HR* Enoxaparin 30 MG/0.3 ML SYRINGE SQ SCH (05:41)
[2021-06-23] MEDS: Saliva Stimulant 44.3ml BOTTLE PO SCH ×4 (07:41→19:52)
[2021-06-23] MEDS: Saline Nasal Spray 44 ML BOTTLE NS SCH ×4 (07:41→19:52)
[2021-06-23] MEDS: Lacri-Lube 3.5 GM TUBE BOTH EYES SCH ×2 (07:42→19:53)
[2021-06-23] MEDS: Cholecalciferol (D-3) 1,000 UNIT (25MCG) TABLET PO SCH (07:42)
[2021-06-23] MEDS: Artificial Tears SOLN 15 ML BOTTLE BOTH EYES SCH ×4 (07:42→19:52)
[2021-06-23] MEDS: BuPROPion XL (24 HR) 150 MG TABLET PO SCH (07:43)
[2021-06-23] MEDS: PARoxetine 20 MG TABLET PO SCH (07:43)
[2021-06-23] MEDS: Budesonide/Formoterol 160/4.5 1 PUFF INH IH SCH ×2 (08:27→20:35)
[2021-06-23] MEDS ORDERED: Furosemide 40 MG/4 ML VIAL IVP ONE (11:52)
[2021-06-23] MEDS: Acetaminophen 325 MG TABLET PO PRN (12:50)
[2021-06-23] MEDS: Sennosides/Docusate Sodium TABLET PO SCH (19:53)
[2021-06-24] MEDS: Ipratropium 1 PUFF INHALER IH SCH ×6 (00:30→20:51)
[2021-06-24] MEDS: *HR* Enoxaparin 30 MG/0.3 ML SYRINGE SQ SCH (05:21)
[2021-06-24 05:33] LABS: Basophils # 0.1 K/mcL (0.0-0.2); Basophils % 0.6 %; Hematocrit 40.6 % (35.3-44.9); Hemoglobin 13.5 g/dL (11.5-15.4); Immature Granulocytes % 2.6 % (0-4); Lymphocytes # 2.8 K/mcL (0.6-4.6); Lymphocytes % 21.6 %; Mean Corpuscular HGB Conc 33.3 g/dL (31.6-35.5); Mean Corpuscular Hemoglobin 30.8 pg (28.0-33.3); Mean Corpuscular Volume 92.5 fL (83.0-100.0); Monocytes # 0.6 K/mcL (0.0-1.3); Monocytes % 4.6 %; Neutrophils # 9.1 K/mcL (1.6-8.9); Platelet Count 380 K/mcL (140-400); Red Blood Count 4.39 M/mcL (3.82-4.97); Red Cell Distribution Width 11.9 % (11.5-14.5); Segmented Neutrophils % 70.6 %; White Blood Count 12.9 K/mcL (4.3-11.1)
[2021-06-24 05:48] LABS: BUN/Creatinine Ratio 58 (6-26); Blood Urea Nitrogen 43 mg/dL (8-23); Calcium 8.4 mg/dL (8.6-10.3); Carbon Dioxide 30 mEq/L (23-29); Chloride 101 mEq/L (98-107); Glucose 67 mg/dL (70-105); Osmolality,Calculated 291 (280-300); Sodium 136 mEq/L (136-145); eGFR For African Americans > 60 (> 60); eGFR For Non-African Americans > 60 (> 60)
[2021-06-24] MEDS: PARoxetine 20 MG TABLET PO SCH (07:21)
[2021-06-24] MEDS: Saline Nasal Spray 44 ML BOTTLE NS SCH ×4 (07:21→21:15)
[2021-06-24] MEDS: Artificial Tears SOLN 15 ML BOTTLE BOTH EYES SCH ×4 (07:21→21:15)
[2021-06-24] MEDS: Cholecalciferol (D-3) 1,000 UNIT (25MCG) TABLET PO SCH (07:21)
[2021-06-24] MEDS: Sennosides/Docusate Sodium TABLET PO SCH ×2 (07:21→21:16)
[2021-06-24] MEDS: Saliva Stimulant 44.3ml BOTTLE PO SCH ×4 (07:21→21:15)
[2021-06-24] MEDS: BuPROPion XL (24 HR) 150 MG TABLET PO SCH (07:21)
[2021-06-24] MEDS: Lacri-Lube 3.5 GM TUBE BOTH EYES SCH ×2 (07:22→21:16)
[2021-06-24] MEDS: Budesonide/Formoterol 160/4.5 1 PUFF INH IH SCH ×2 (07:30→20:51)
[2021-06-24] MEDS: Acetaminophen 325 MG TABLET PO PRN (13:53)
[2021-06-24] MEDS: Furosemide 20 MG/2 ML VIAL IVP SCH (13:53)
[2021-06-25] MEDS: Ipratropium 1 PUFF INHALER IH SCH ×7 (00:35→23:57)
[2021-06-25] MEDS: *HR* Enoxaparin 30 MG/0.3 ML SYRINGE SQ SCH (05:20)
[2021-06-25 07:16] LABS: Basophils # 0.1 K/mcL (0.0-0.2); Basophils % 0.3 %; Eosinophils % 0.1 %; Hematocrit 37.8 % (35.3-44.9); Hemoglobin 13.2 g/dL (11.5-15.4); Immature Granulocytes % 2.6 % (0-4); Lymphocytes # 3.6 K/mcL (0.6-4.6); Lymphocytes % 20.8 %; Mean Corpuscular HGB Conc 34.9 g/dL (31.6-35.5); Mean Corpuscular Hemoglobin 32.3 pg (28.0-33.3); Mean Corpuscular Volume 92.4 fL (83.0-100.0); Monocytes # 0.8 K/mcL (0.0-1.3); Monocytes % 4.4 %; Neutrophils # 12.4 K/mcL (1.6-8.9); Platelet Count 371 K/mcL (140-400); Red Blood Count 4.09 M/mcL (3.82-4.97); Red Cell Distribution Width 11.9 % (11.5-14.5); Segmented Neutrophils % 71.8 %; White Blood Count 17.3 K/mcL (4.3-11.1)
[2021-06-25 07:34] LABS: Albumin 3.3 g/dL (3.5-5.7); Albumin/Globulin Ratio 1.1 (1.1-2.2); Bilirubin,Direct 0.2 mg/dL (0.0-0.2); Bilirubin,Indirect 0.5 mg/dL (0.0-1.0); Bilirubin,Total 0.7 mg/dL (0.3-1.0); Total Protein 6.3 g/dL (6.4-8.9)
[2021-06-25 07:35] LABS: BUN/Creatinine Ratio 57 (6-26); Blood Urea Nitrogen 44 mg/dL (8-23); Calcium 8.6 mg/dL (8.6-10.3); Carbon Dioxide 30 mEq/L (23-29); Chloride 98 mEq/L (98-107); Glucose 76 mg/dL (70-105); Osmolality,Calculated 292 (280-300); Potassium 3.6 mEq/L (3.5-5.1); Sodium 136 mEq/L (136-145); eGFR For African Americans > 60 (> 60); eGFR For Non-African Americans > 60 (> 60)
[2021-06-25] MEDS: Budesonide/Formoterol 160/4.5 1 PUFF INH IH SCH ×2 (08:20→20:12)
[2021-06-25] MEDS: BuPROPion XL (24 HR) 150 MG TABLET PO SCH (08:27)
[2021-06-25] MEDS: Furosemide 20 MG/2 ML VIAL IVP SCH (08:27)
[2021-06-25] MEDS: Sennosides/Docusate Sodium TABLET PO SCH ×2 (08:27→21:13)
[2021-06-25] MEDS: PARoxetine 20 MG TABLET PO SCH (08:27)
[2021-06-25] MEDS: Cholecalciferol (D-3) 1,000 UNIT (25MCG) TABLET PO SCH (08:27)
[2021-06-25] MEDS: Saline Nasal Spray 44 ML BOTTLE NS SCH ×4 (08:28→21:13)
[2021-06-25] MEDS: Lacri-Lube 3.5 GM TUBE BOTH EYES SCH (08:29)
[2021-06-25] MEDS: Artificial Tears SOLN 15 ML BOTTLE BOTH EYES SCH ×4 (08:29→21:15)
[2021-06-25] MEDS: Saliva Stimulant 44.3ml BOTTLE PO SCH ×4 (08:29→21:15)
[2021-06-26] MEDS: Lacri-Lube 3.5 GM TUBE BOTH EYES SCH ×3 (02:41→20:38)
[2021-06-26] MEDS: Ipratropium 1 PUFF INHALER IH SCH ×6 (04:02→23:55)
[2021-06-26] MEDS: *HR* Enoxaparin 30 MG/0.3 ML SYRINGE SQ SCH (05:45)
[2021-06-26] MEDS: Budesonide/Formoterol 160/4.5 1 PUFF INH IH SCH ×2 (08:04→20:39)
[2021-06-26] MEDS: Cholecalciferol (D-3) 1,000 UNIT (25MCG) TABLET PO SCH (08:25)
[2021-06-26] MEDS: PARoxetine 20 MG TABLET PO SCH (08:25)
[2021-06-26] MEDS: Sennosides/Docusate Sodium TABLET PO SCH ×2 (08:26→20:37)
[2021-06-26] MEDS: Furosemide 20 MG/2 ML VIAL IVP SCH (08:26)
[2021-06-26] MEDS: BuPROPion XL (24 HR) 150 MG TABLET PO SCH (08:26)
[2021-06-26] MEDS: Artificial Tears SOLN 15 ML BOTTLE BOTH EYES SCH ×4 (08:27→19:05)
[2021-06-26] MEDS: Saline Nasal Spray 44 ML BOTTLE NS SCH ×4 (08:27→19:05)
[2021-06-26] MEDS: Saliva Stimulant 44.3ml BOTTLE PO SCH ×4 (08:28→19:06)
[2021-06-26 13:02] LABS: Basophils # 0.1 K/mcL (0.0-0.2); Basophils % 0.4 %; Hematocrit 39.4 % (35.3-44.9); Hemoglobin 13.8 g/dL (11.5-15.4); Immature Granulocytes % 2.4 % (0-4); Lymphocytes # 2.3 K/mcL (0.6-4.6); Lymphocytes % 11.9 %; Mean Corpuscular Volume 88.5 fL (83.0-100.0); Mean Platelet Volume 8.7 fL (9.4-12.4); Monocytes # 0.4 K/mcL (0.0-1.3); Monocytes % 2.2 %; Neutrophils # 15.7 K/mcL (1.6-8.9); Platelet Count 401 K/mcL (140-400); Red Blood Count 4.45 M/mcL (3.82-4.97); Segmented Neutrophils % 83.1 %; White Blood Count 18.9 K/mcL (4.3-11.1)
[2021-06-26 13:16] LABS: BUN/Creatinine Ratio 58 (6-26); Blood Urea Nitrogen 44 mg/dL (8-23); Carbon Dioxide 28 mEq/L (23-29); Chloride 95 mEq/L (98-107); Glucose 139 mg/dL (70-105); Osmolality,Calculated 291 (280-300); Potassium 3.3 mEq/L (3.5-5.1); Sodium 134 mEq/L (136-145); eGFR For African Americans > 60 (> 60); eGFR For Non-African Americans > 60 (> 60)
[2021-06-27] MEDS: Ipratropium 1 PUFF INHALER IH SCH ×5 (04:54→20:45)
[2021-06-27] MEDS: *HR* Enoxaparin 30 MG/0.3 ML SYRINGE SQ SCH (05:34)
[2021-06-27 08:01] LABS: Basophils # 0.1 K/mcL (0.0-0.2); Basophils % 0.4 %; Hematocrit 40.2 % (35.3-44.9); Hemoglobin 13.4 g/dL (11.5-15.4); Immature Granulocytes % 1.9 % (0-4); Lymphocytes # 3.3 K/mcL (0.6-4.6); Lymphocytes % 17.8 %; Mean Corpuscular HGB Conc 33.3 g/dL (31.6-35.5); Mean Corpuscular Hemoglobin 29.9 pg (28.0-33.3); Mean Corpuscular Volume 89.7 fL (83.0-100.0); Monocytes % 5.3 %; Neutrophils # 13.9 K/mcL (1.6-8.9); Platelet Count 392 K/mcL (140-400); Red Blood Count 4.48 M/mcL (3.82-4.97); Red Cell Distribution Width 12.1 % (11.5-14.5); Segmented Neutrophils % 74.6 %; White Blood Count 18.6 K/mcL (4.3-11.1)
[2021-06-27 08:07] LABS: BUN/Creatinine Ratio 65 (6-26); Blood Urea Nitrogen 48 mg/dL (8-23); Calcium 9.2 mg/dL (8.6-10.3); Carbon Dioxide 30 mEq/L (23-29); Chloride 97 mEq/L (98-107); Glucose 78 mg/dL (70-105); Osmolality,Calculated 291 (280-300); Sodium 135 mEq/L (136-145); eGFR For African Americans > 60 (> 60); eGFR For Non-African Americans > 60 (> 60)
[2021-06-27] MEDS: Budesonide/Formoterol 160/4.5 1 PUFF INH IH SCH ×2 (08:36→20:45)
[2021-06-27] MEDS: PARoxetine 20 MG TABLET PO SCH (10:04)
[2021-06-27] MEDS: BuPROPion XL (24 HR) 150 MG TABLET PO SCH (10:04)
[2021-06-27] MEDS: Sennosides/Docusate Sodium TABLET PO SCH ×2 (10:04→21:48)
[2021-06-27] MEDS: Cholecalciferol (D-3) 1,000 UNIT (25MCG) TABLET PO SCH (10:04)
[2021-06-27] MEDS: Saline Nasal Spray 44 ML BOTTLE NS SCH ×4 (10:05→21:47)
[2021-06-27] MEDS: Artificial Tears SOLN 15 ML BOTTLE BOTH EYES SCH ×4 (10:05→21:47)
[2021-06-27] MEDS: Lacri-Lube 3.5 GM TUBE BOTH EYES SCH ×2 (10:05→21:48)
[2021-06-27] MEDS: Saliva Stimulant 44.3ml BOTTLE PO SCH ×4 (10:26→21:48)
[2021-06-27 12:05] LABS: ABG Base Excess 6 mEq/L (-2 to 3); ABG HCO3 28 mEq/L (21-27); ABG Oxygen Saturation 89 % (95-98); ABG PCO2 32 mmHg (35-45); ABG PH 7.56 pH Units (7.32-7.45); ABG PO2 48 mmHg (85-104); ABG TCO2 29 mEq/L (20-26)
[2021-06-28] MEDS: Ipratropium 1 PUFF INHALER IH SCH ×7 (00:03→23:31)
[2021-06-28 05:53] LABS: Basophils # 0.1 K/mcL (0.0-0.2); Basophils % 0.5 %; Eosinophils % 0.1 %; Hematocrit 37.9 % (35.3-44.9); Hemoglobin 12.5 g/dL (11.5-15.4); Immature Granulocytes % 2.2 % (0-4); Mean Corpuscular Hemoglobin 29.9 pg (28.0-33.3); Mean Corpuscular Volume 90.7 fL (83.0-100.0); Monocytes # 0.8 K/mcL (0.0-1.3); Monocytes % 4.9 %; Neutrophils # 10.1 K/mcL (1.6-8.9); Platelet Count 337 K/mcL (140-400); Red Blood Count 4.18 M/mcL (3.82-4.97); Red Cell Distribution Width 12.3 % (11.5-14.5); Segmented Neutrophils % 66.3 %; White Blood Count 15.2 K/mcL (4.3-11.1)
[2021-06-28] MEDS: *HR* Enoxaparin 30 MG/0.3 ML SYRINGE SQ SCH (06:10)
[2021-06-28 06:44] LABS: BUN/Creatinine Ratio 57 (6-26); Blood Urea Nitrogen 48 mg/dL (8-23); Calcium 8.6 mg/dL (8.6-10.3); Carbon Dioxide 25 mEq/L (23-29); Chloride 100 mEq/L (98-107); Glucose 64 mg/dL (70-105); Osmolality,Calculated 289 (280-300); Potassium 4.6 mEq/L (3.5-5.1); Sodium 134 mEq/L (136-145); eGFR For African Americans > 60 (> 60); eGFR For Non-African Americans > 60 (> 60)
[2021-06-28] MEDS: Budesonide/Formoterol 160/4.5 1 PUFF INH IH SCH ×2 (07:48→20:31)
[2021-06-28] MEDS ORDERED: Furosemide 20 MG/2 ML VIAL IVP SCH (09:00)
[2021-06-28] MEDS: PARoxetine 20 MG TABLET PO SCH (09:57)
[2021-06-28] MEDS: Sennosides/Docusate Sodium TABLET PO SCH ×2 (09:57→20:54)
[2021-06-28] MEDS: Cholecalciferol (D-3) 1,000 UNIT (25MCG) TABLET PO SCH (09:57)
[2021-06-28] MEDS: BuPROPion XL (24 HR) 150 MG TABLET PO SCH (09:57)
[2021-06-28] MEDS: Artificial Tears SOLN 15 ML BOTTLE BOTH EYES SCH ×4 (09:58→20:53)
[2021-06-28] MEDS: Lacri-Lube 3.5 GM TUBE BOTH EYES SCH ×2 (09:58→21:04)
[2021-06-28] MEDS: Saline Nasal Spray 44 ML BOTTLE NS SCH ×4 (09:58→20:53)
[2021-06-28] MEDS: Saliva Stimulant 44.3ml BOTTLE PO SCH ×4 (09:58→20:53)
[2021-06-29 03:30] LABS: Albumin 3.3 g/dL (3.5-5.7); Albumin/Globulin Ratio 1.1 (1.1-2.2); Bilirubin,Direct 0.1 mg/dL (0.0-0.2); Bilirubin,Indirect 0.5 mg/dL (0.0-1.0); Bilirubin,Total 0.6 mg/dL (0.3-1.0); Total Protein 6.3 g/dL (6.4-8.9)
[2021-06-29] MEDS: Ipratropium 1 PUFF INHALER IH SCH ×5 (03:52→20:27)
[2021-06-29] MEDS: *HR* Enoxaparin 30 MG/0.3 ML SYRINGE SQ SCH (06:18)
[2021-06-29] MEDS: Budesonide/Formoterol 160/4.5 1 PUFF INH IH SCH ×2 (08:16→20:27)
[2021-06-29] MEDS: Furosemide 40 MG/4 ML VIAL IVP SCH (09:46)
[2021-06-29] MEDS: Artificial Tears SOLN 15 ML BOTTLE BOTH EYES SCH ×4 (09:47→21:05)
[2021-06-29] MEDS: Sennosides/Docusate Sodium TABLET PO SCH ×2 (09:47→21:05)
[2021-06-29] MEDS: Saliva Stimulant 44.3ml BOTTLE PO SCH ×4 (09:47→21:05)
[2021-06-29] MEDS: PARoxetine 20 MG TABLET PO SCH (09:47)
[2021-06-29] MEDS: Saline Nasal Spray 44 ML BOTTLE NS SCH ×4 (09:47→21:05)
[2021-06-29] MEDS: Cholecalciferol (D-3) 1,000 UNIT (25MCG) TABLET PO SCH (09:47)
[2021-06-29] MEDS: BuPROPion XL (24 HR) 150 MG TABLET PO SCH (09:47)
[2021-06-29] MEDS: Lacri-Lube 3.5 GM TUBE BOTH EYES SCH ×2 (09:48→21:06)
[2021-06-30] MEDS: Ipratropium 1 PUFF INHALER IH SCH ×6 (00:22→20:36)
[2021-06-30] MEDS: *HR* Enoxaparin 30 MG/0.3 ML SYRINGE SQ SCH (05:33)
[2021-06-30 07:10] LABS: Basophils # 0.1 K/mcL (0.0-0.2); Basophils % 0.3 %; Eosinophils # 0.1 K/mcL (0.0-0.6); Eosinophils % 0.5 %; Hematocrit 40.9 % (35.3-44.9); Hemoglobin 13.5 g/dL (11.5-15.4); Immature Granulocytes % 2.1 % (0-4); Mean Corpuscular Hemoglobin 30.1 pg (28.0-33.3); Mean Corpuscular Volume 91.3 fL (83.0-100.0); Mean Platelet Volume 8.8 fL (9.4-12.4); Monocytes # 0.4 K/mcL (0.0-1.3); Neutrophils # 10.6 K/mcL (1.6-8.9); Platelet Count 364 K/mcL (140-400); Red Blood Count 4.48 M/mcL (3.82-4.97); Red Cell Distribution Width 12.5 % (11.5-14.5); Segmented Neutrophils % 73.1 %; White Blood Count 14.5 K/mcL (4.3-11.1)
[2021-06-30] MEDS: Budesonide/Formoterol 160/4.5 1 PUFF INH IH SCH ×2 (07:52→20:36)
[2021-06-30 08:06] LABS: BUN/Creatinine Ratio 45 (6-26); Blood Urea Nitrogen 39 mg/dL (8-23); Calcium 8.8 mg/dL (8.6-10.3); Carbon Dioxide 27 mEq/L (23-29); Chloride 96 mEq/L (98-107); Glucose 76 mg/dL (70-105); Magnesium 2.3 mg/dL (1.6-2.6); Osmolality,Calculated 284 (280-300); Potassium 3.8 mEq/L (3.5-5.1); Sodium 133 mEq/L (136-145); eGFR For African Americans > 60 (> 60); eGFR For Non-African Americans > 60 (> 60)
[2021-06-30] MEDS: Saline Nasal Spray 44 ML BOTTLE NS SCH ×4 (09:05→20:38)
[2021-06-30] MEDS: Saliva Stimulant 44.3ml BOTTLE PO SCH ×4 (09:05→20:39)
[2021-06-30] MEDS: Cholecalciferol (D-3) 1,000 UNIT (25MCG) TABLET PO SCH (10:38)
[2021-06-30] MEDS: Loratadine 10 MG TABLET PO SCH (10:39)
[2021-06-30] MEDS: BuPROPion XL (24 HR) 150 MG TABLET PO SCH (10:39)
[2021-06-30] MEDS: PARoxetine 20 MG TABLET PO SCH (10:39)
[2021-06-30] MEDS: Furosemide 40 MG/4 ML VIAL IVP SCH (10:39)
[2021-06-30] MEDS: Sennosides/Docusate Sodium TABLET PO SCH ×2 (10:39→20:38)
[2021-06-30] MEDS: Artificial Tears SOLN 15 ML BOTTLE BOTH EYES SCH ×4 (10:39→20:38)
[2021-06-30] MEDS: Lacri-Lube 3.5 GM TUBE BOTH EYES SCH ×2 (10:40→20:38)
[2021-06-30] MEDS: Ondansetron 4 MG/2 ML VIAL IVP PRN (14:13)
[2021-06-30] MEDS ORDERED: *HR* Promethazine 25 MG/ML VIAL IM ONE (20:47)
[2021-07-01] MEDS: Ipratropium 1 PUFF INHALER IH SCH ×7 (00:12→23:44)
[2021-07-01] MEDS: *HR* Enoxaparin 30 MG/0.3 ML SYRINGE SQ SCH (05:54)
[2021-07-01 06:03] LABS: BUN/Creatinine Ratio 46 (6-26); Blood Urea Nitrogen 44 mg/dL (8-23); Calcium 8.7 mg/dL (8.6-10.3); Carbon Dioxide 25 mEq/L (23-29); Chloride 97 mEq/L (98-107); Glucose 120 mg/dL (70-105); Magnesium 2.4 mg/dL (1.6-2.6); Osmolality,Calculated 286 (280-300); Potassium 3.9 mEq/L (3.5-5.1); Sodium 132 mEq/L (136-145); eGFR For African Americans > 60 (> 60); eGFR For Non-African Americans 59 (> 60)
[2021-07-01 06:16] LABS: Basophils % 0.2 %; Eosinophils % 0.1 %; Hematocrit 40.3 % (35.3-44.9); Hemoglobin 13.7 g/dL (11.5-15.4); Immature Granulocytes % 0.8 % (0-4); Lymphocytes # 1.5 K/mcL (0.6-4.6); Lymphocytes % 10.2 %; Mean Corpuscular Hemoglobin 30.6 pg (28.0-33.3); Mean Corpuscular Volume 90.2 fL (83.0-100.0); Mean Platelet Volume 9.1 fL (9.4-12.4); Monocytes # 0.4 K/mcL (0.0-1.3); Monocytes % 2.4 %; Neutrophils # 12.6 K/mcL (1.6-8.9); Platelet Count 339 K/mcL (140-400); Red Blood Count 4.47 M/mcL (3.82-4.97); Red Cell Distribution Width 12.2 % (11.5-14.5); Segmented Neutrophils % 86.3 %; White Blood Count 14.6 K/mcL (4.3-11.1)
[2021-07-01] MEDS: Artificial Tears SOLN 15 ML BOTTLE BOTH EYES SCH ×4 (08:40→19:54)
[2021-07-01] MEDS: Saline Nasal Spray 44 ML BOTTLE NS SCH ×4 (08:41→19:54)
[2021-07-01] MEDS: Saliva Stimulant 44.3ml BOTTLE PO SCH ×4 (08:41→19:54)
[2021-07-01] MEDS: PARoxetine 20 MG TABLET PO SCH (08:43)
[2021-07-01] MEDS: Loratadine 10 MG TABLET PO SCH (08:43)
[2021-07-01] MEDS: Lacri-Lube 3.5 GM TUBE BOTH EYES SCH ×2 (08:43→19:54)
[2021-07-01] MEDS: Sennosides/Docusate Sodium TABLET PO SCH ×2 (08:44→19:54)
[2021-07-01] MEDS: BuPROPion XL (24 HR) 150 MG TABLET PO SCH (08:44)
[2021-07-01] MEDS: Cholecalciferol (D-3) 1,000 UNIT (25MCG) TABLET PO SCH (08:44)
[2021-07-01] MEDS: Furosemide 40 MG/4 ML VIAL IVP SCH (08:46)
[2021-07-01] MEDS: Ondansetron 4 MG/2 ML VIAL IVP PRN ×2 (08:54→16:32)
[2021-07-01] MEDS: Budesonide/Formoterol 160/4.5 1 PUFF INH IH SCH ×2 (09:00→19:44)
[2021-07-01] MEDS: levoFLOXacin 750 MG/150 ML 750 MG/150 ML BAG IVPB SCH (19:53)
[2021-07-02] MEDS: Ondansetron 4 MG/2 ML VIAL IVP PRN (00:50)
[2021-07-02] MEDS: *HR* Promethazine 25 MG/ML VIAL IM PRN (01:47)
[2021-07-02 02:56] LABS: Basophils % 0.2 %; Eosinophils % 0.1 %; Hematocrit 37.8 % (35.3-44.9); Hemoglobin 12.7 g/dL (11.5-15.4); Immature Granulocytes % 0.9 % (0-4); Lymphocytes # 1.2 K/mcL (0.6-4.6); Lymphocytes % 8.2 %; Mean Corpuscular HGB Conc 33.6 g/dL (31.6-35.5); Mean Corpuscular Hemoglobin 30.7 pg (28.0-33.3); Mean Corpuscular Volume 91.3 fL (83.0-100.0); Monocytes # 0.6 K/mcL (0.0-1.3); Monocytes % 4.4 %; Neutrophils # 12.2 K/mcL (1.6-8.9); Platelet Count 303 K/mcL (140-400); Red Blood Count 4.14 M/mcL (3.82-4.97); Red Cell Distribution Width 12.3 % (11.5-14.5); Segmented Neutrophils % 86.2 %; White Blood Count 14.1 K/mcL (4.3-11.1)
[2021-07-02] MEDS ORDERED: Prochlorperazine 10 MG/2 ML VIAL IVP PRN (03:01)
[2021-07-02 03:20] LABS: BUN/Creatinine Ratio 45 (6-26); Blood Urea Nitrogen 44 mg/dL (8-23); Calcium 8.5 mg/dL (8.6-10.3); Carbon Dioxide 18 mEq/L (23-29); Chloride 95 mEq/L (98-107); Glucose 136 mg/dL (70-105); Magnesium 2.1 mg/dL (1.6-2.6); Osmolality,Calculated 283 (280-300); Phosphorous 2.3 mg/dL (2.7-4.5); Potassium 3.3 mEq/L (3.5-5.1); Sodium 130 mEq/L (136-145); eGFR For African Americans > 60 (> 60); eGFR For Non-African Americans 57 (> 60)
[2021-07-02] MEDS: Ipratropium 1 PUFF INHALER IH SCH ×6 (03:48→23:29)
[2021-07-02] MEDS: *HR* Enoxaparin 30 MG/0.3 ML SYRINGE SQ SCH (05:57)
[2021-07-02] MEDS: Budesonide/Formoterol 160/4.5 1 PUFF INH IH SCH ×2 (07:35→20:04)
[2021-07-02] MEDS: PARoxetine 20 MG TABLET PO SCH (07:48)
[2021-07-02] MEDS: Sennosides/Docusate Sodium TABLET PO SCH ×2 (07:48→20:12)
[2021-07-02] MEDS: levoFLOXacin 750 MG/150 ML 750 MG/150 ML BAG IVPB SCH (07:48)
[2021-07-02] MEDS: Furosemide 40 MG/4 ML VIAL IVP SCH (07:48)
[2021-07-02] MEDS: Loratadine 10 MG TABLET PO SCH (07:48)
[2021-07-02] MEDS: Artificial Tears SOLN 15 ML BOTTLE BOTH EYES SCH ×4 (07:49→20:12)
[2021-07-02] MEDS: Lacri-Lube 3.5 GM TUBE BOTH EYES SCH ×2 (07:49→20:12)
[2021-07-02] MEDS: BuPROPion XL (24 HR) 150 MG TABLET PO SCH (07:49)
[2021-07-02] MEDS: Saline Nasal Spray 44 ML BOTTLE NS SCH ×4 (07:49→20:12)
[2021-07-02] MEDS: Cholecalciferol (D-3) 1,000 UNIT (25MCG) TABLET PO SCH (07:49)
[2021-07-02] MEDS: Saliva Stimulant 44.3ml BOTTLE PO SCH ×4 (07:49→20:12)
[2021-07-02] MEDS ORDERED: Albumin 25% 25gram/100mL 25 GM/100 ML IV.SOLN IVPB ONE (11:50)
[2021-07-03] MEDS: Ipratropium 1 PUFF INHALER IH SCH ×6 (03:51→23:27)
[2021-07-03] MEDS: *HR* Enoxaparin 30 MG/0.3 ML SYRINGE SQ SCH (05:14)
[2021-07-03] MEDS: Budesonide/Formoterol 160/4.5 1 PUFF INH IH SCH ×2 (08:16→20:42)
[2021-07-03] MEDS: Saline Nasal Spray 44 ML BOTTLE NS SCH ×4 (09:52→21:01)
[2021-07-03] MEDS: Furosemide 40 MG/4 ML VIAL IVP SCH (09:52)
[2021-07-03] MEDS: Lacri-Lube 3.5 GM TUBE BOTH EYES SCH ×2 (09:52→21:02)
[2021-07-03] MEDS: Artificial Tears SOLN 15 ML BOTTLE BOTH EYES SCH ×4 (09:52→21:01)
[2021-07-03] MEDS: Saliva Stimulant 44.3ml BOTTLE PO SCH ×4 (09:52→21:00)
[2021-07-03] MEDS: BuPROPion XL (24 HR) 150 MG TABLET PO SCH (09:53)
[2021-07-03] MEDS: Loratadine 10 MG TABLET PO SCH (09:53)
[2021-07-03] MEDS: Cholecalciferol (D-3) 1,000 UNIT (25MCG) TABLET PO SCH (09:53)
[2021-07-03] MEDS: PARoxetine 20 MG TABLET PO SCH (09:53)
[2021-07-03] MEDS: Sennosides/Docusate Sodium TABLET PO SCH ×2 (09:53→21:04)
[2021-07-03 10:37] LABS: Basophils % 0.1 %; Eosinophils % 0.2 %; Hematocrit 34.8 % (35.3-44.9); Hemoglobin 11.7 g/dL (11.5-15.4); Immature Granulocytes % 0.5 % (0-4); Lymphocytes # 0.9 K/mcL (0.6-4.6); Lymphocytes % 6.5 %; Mean Corpuscular HGB Conc 33.6 g/dL (31.6-35.5); Mean Corpuscular Hemoglobin 29.5 pg (28.0-33.3); Mean Corpuscular Volume 87.7 fL (83.0-100.0); Mean Platelet Volume 9.1 fL (9.4-12.4); Monocytes # 0.5 K/mcL (0.0-1.3); Monocytes % 3.5 %; Neutrophils # 12.3 K/mcL (1.6-8.9); Platelet Count 243 K/mcL (140-400); Red Blood Count 3.97 M/mcL (3.82-4.97); Red Cell Distribution Width 12.4 % (11.5-14.5); Segmented Neutrophils % 89.2 %; White Blood Count 13.8 K/mcL (4.3-11.1)
[2021-07-03 10:56] LABS: BUN/Creatinine Ratio 44 (6-26); Blood Urea Nitrogen 32 mg/dL (8-23); Calcium 8.8 mg/dL (8.6-10.3); Carbon Dioxide 26 mEq/L (23-29); Chloride 99 mEq/L (98-107); Glucose 108 mg/dL (70-105); Magnesium 2.3 mg/dL (1.6-2.6); Osmolality,Calculated 271 (280-300); Potassium 2.8 mEq/L (3.5-5.1); Sodium 127 mEq/L (136-145); eGFR For African Americans > 60 (> 60); eGFR For Non-African Americans > 60 (> 60)
[2021-07-03] MEDS: Ondansetron 4 MG/2 ML VIAL IVP PRN (15:30)
[2021-07-04] MEDS: Ipratropium 1 PUFF INHALER IH SCH ×6 (03:54→23:37)
[2021-07-04] MEDS: Artificial Tears SOLN 15 ML BOTTLE BOTH EYES SCH ×4 (06:55→19:56)
[2021-07-04] MEDS: Saline Nasal Spray 44 ML BOTTLE NS SCH ×4 (06:55→19:56)
[2021-07-04] MEDS: Saliva Stimulant 44.3ml BOTTLE PO SCH ×4 (06:55→19:56)
[2021-07-04] MEDS: *HR* Enoxaparin 30 MG/0.3 ML SYRINGE SQ SCH (06:55)
[2021-07-04] MEDS ORDERED: Albumin 25% 25gram/100mL 25 GM/100 ML IV.SOLN IVPB ONE (08:01)
[2021-07-04] MEDS: Budesonide/Formoterol 160/4.5 1 PUFF INH IH SCH ×2 (08:18→20:02)
[2021-07-04] MEDS ORDERED: levoFLOXacin 750 MG/150 ML 750 MG/150 ML BAG IVPB SCH (09:00)
[2021-07-04] MEDS: Furosemide 40 MG/4 ML VIAL IVP SCH (09:36)
[2021-07-04] MEDS: Loratadine 10 MG TABLET PO SCH (09:37)
[2021-07-04] MEDS: Lacri-Lube 3.5 GM TUBE BOTH EYES SCH ×2 (09:37→20:18)
[2021-07-04] MEDS: BuPROPion XL (24 HR) 150 MG TABLET PO SCH (09:37)
[2021-07-04] MEDS: Sennosides/Docusate Sodium TABLET PO SCH ×2 (09:37→20:17)
[2021-07-04] MEDS: Cholecalciferol (D-3) 1,000 UNIT (25MCG) TABLET PO SCH (09:37)
[2021-07-04] MEDS: PARoxetine 20 MG TABLET PO SCH (09:37)
[2021-07-04] MEDS: *HR* Promethazine 25 MG/ML VIAL IM PRN (13:22)
[2021-07-04] MEDS: polyethylene glycoL 3350 17 GM POWD.PACK PO SCH (16:18)
[2021-07-05] MEDS: Ipratropium 1 PUFF INHALER IH SCH ×6 (03:52→23:53)
[2021-07-05 05:28] LABS: Basophils % 0.3 %; Eosinophils # 0.3 K/mcL (0.0-0.6); Hemoglobin 11.2 g/dL (11.5-15.4); Immature Granulocytes % 0.6 % (0-4); Lymphocytes # 1.1 K/mcL (0.6-4.6); Lymphocytes % 10.2 %; Mean Corpuscular HGB Conc 32.9 g/dL (31.6-35.5); Mean Corpuscular Hemoglobin 29.6 pg (28.0-33.3); Mean Corpuscular Volume 89.9 fL (83.0-100.0); Mean Platelet Volume 9.2 fL (9.4-12.4); Monocytes # 0.6 K/mcL (0.0-1.3); Monocytes % 5.4 %; Neutrophils # 8.4 K/mcL (1.6-8.9); Platelet Count 245 K/mcL (140-400); Red Blood Count 3.78 M/mcL (3.82-4.97); Segmented Neutrophils % 80.5 %; White Blood Count 10.4 K/mcL (4.3-11.1)
[2021-07-05 05:30] LABS: Calcium 9.7 mg/dL (8.6-10.3); Carbon Dioxide 29 mEq/L (23-29); Chloride 99 mEq/L (98-107); Glucose 77 mg/dL (70-105); Magnesium 2.2 mg/dL (1.6-2.6); Phosphorous 2.3 mg/dL (2.7-4.5); Sodium 131 mEq/L (136-145); eGFR For African Americans > 60 (> 60); eGFR For Non-African Americans > 60 (> 60)
[2021-07-05 05:31] LABS: BUN/Creatinine Ratio 46 (6-26); Blood Urea Nitrogen 31 mg/dL (8-23); Osmolality,Calculated 277 (280-300)
[2021-07-05] MEDS: *HR* Enoxaparin 40 MG/0.4 ML SYRINGE SQ SCH (05:41)
[2021-07-05] MEDS: Saline Nasal Spray 44 ML BOTTLE NS SCH ×4 (07:40→21:30)
[2021-07-05] MEDS: Saliva Stimulant 44.3ml BOTTLE PO SCH ×4 (07:40→21:30)
[2021-07-05] MEDS: Sennosides/Docusate Sodium TABLET PO SCH ×2 (07:41→21:32)
[2021-07-05] MEDS: Cholecalciferol (D-3) 1,000 UNIT (25MCG) TABLET PO SCH (07:41)
[2021-07-05] MEDS: Loratadine 10 MG TABLET PO SCH (07:41)
[2021-07-05] MEDS: BuPROPion XL (24 HR) 150 MG TABLET PO SCH (07:41)
[2021-07-05] MEDS: PARoxetine 20 MG TABLET PO SCH (07:41)
[2021-07-05] MEDS: Artificial Tears SOLN 15 ML BOTTLE BOTH EYES SCH ×4 (07:42→21:29)
[2021-07-05] MEDS: polyethylene glycoL 3350 17 GM POWD.PACK PO SCH (07:42)
[2021-07-05] MEDS: Lacri-Lube 3.5 GM TUBE BOTH EYES SCH ×2 (07:42→21:33)
[2021-07-05] MEDS: Budesonide/Formoterol 160/4.5 1 PUFF INH IH SCH ×2 (08:43→20:37)
[2021-07-05] MEDS: levoFLOXacin 750 MG/150 ML 750 MG/150 ML BAG IVPB SCH (12:01)
[2021-07-05] MEDS: Acetaminophen 325 MG TABLET PO PRN (17:08)
[2021-07-05] MEDS ORDERED: Albumin 25% 25gram/100mL 25 GM/100 ML IV.SOLN IVPB ONE (18:09)
[2021-07-06 03:17] LABS: Basophils % 0.4 %; Eosinophils # 0.3 K/mcL (0.0-0.6); Eosinophils % 3.4 %; Hematocrit 31.3 % (35.3-44.9); Hemoglobin 10.1 g/dL (11.5-15.4); Lymphocytes # 1.1 K/mcL (0.6-4.6); Lymphocytes % 12.9 %; Mean Corpuscular HGB Conc 32.3 g/dL (31.6-35.5); Mean Corpuscular Hemoglobin 29.1 pg (28.0-33.3); Mean Corpuscular Volume 90.2 fL (83.0-100.0); Mean Platelet Volume 9.1 fL (9.4-12.4); Monocytes # 0.5 K/mcL (0.0-1.3); Monocytes % 6.4 %; Neutrophils # 6.3 K/mcL (1.6-8.9); Platelet Count 226 K/mcL (140-400); Red Blood Count 3.47 M/mcL (3.82-4.97); Red Cell Distribution Width 13.1 % (11.5-14.5); Segmented Neutrophils % 75.9 %; White Blood Count 8.3 K/mcL (4.3-11.1)
[2021-07-06 03:35] LABS: BUN/Creatinine Ratio 42 (6-26); Blood Urea Nitrogen 28 mg/dL (8-23); Calcium 10.1 mg/dL (8.6-10.3); Carbon Dioxide 29 mEq/L (23-29); Chloride 97 mEq/L (98-107); Glucose 80 mg/dL (70-105); Osmolality,Calculated 278 (280-300); Potassium 3.9 mEq/L (3.5-5.1); Sodium 132 mEq/L (136-145); eGFR For African Americans > 60 (> 60); eGFR For Non-African Americans > 60 (> 60)
[2021-07-06] MEDS: Ipratropium 1 PUFF INHALER IH SCH ×5 (03:57→20:36)
[2021-07-06] MEDS: *HR* Enoxaparin 40 MG/0.4 ML SYRINGE SQ SCH (05:28)
[2021-07-06] MEDS: Budesonide/Formoterol 160/4.5 1 PUFF INH IH SCH ×2 (07:49→20:36)
[2021-07-06] MEDS: BuPROPion XL (24 HR) 150 MG TABLET PO SCH (08:43)
[2021-07-06] MEDS: PARoxetine 20 MG TABLET PO SCH (08:43)
[2021-07-06] MEDS: Cholecalciferol (D-3) 1,000 UNIT (25MCG) TABLET PO SCH (08:43)
[2021-07-06] MEDS: Sennosides/Docusate Sodium TABLET PO SCH ×2 (08:43→20:21)
[2021-07-06] MEDS: Loratadine 10 MG TABLET PO SCH (08:44)
[2021-07-06] MEDS: Artificial Tears SOLN 15 ML BOTTLE BOTH EYES SCH ×3 (08:44→19:47)
[2021-07-06] MEDS: Saliva Stimulant 44.3ml BOTTLE PO SCH ×4 (08:44→20:22)
[2021-07-06] MEDS: Lacri-Lube 3.5 GM TUBE BOTH EYES SCH ×2 (08:45→19:47)
[2021-07-06] MEDS: polyethylene glycoL 3350 17 GM POWD.PACK PO SCH (08:45)
[2021-07-06] MEDS: Saline Nasal Spray 44 ML BOTTLE NS SCH ×4 (08:45→19:47)
[2021-07-06] MEDS: levoFLOXacin 750 MG/150 ML 750 MG/150 ML BAG IVPB SCH (12:26)
[2021-07-06] MEDS: Ondansetron 4 MG/2 ML VIAL IVP PRN (14:26)
[2021-07-07] MEDS: Ipratropium 1 PUFF INHALER IH SCH ×6 (00:03→20:22)
[2021-07-07 05:00] LABS: Hematocrit 33.9 % (35.3-44.9); Hemoglobin 10.9 g/dL (11.5-15.4); Mean Corpuscular HGB Conc 32.2 g/dL (31.6-35.5); Mean Corpuscular Hemoglobin 29.1 pg (28.0-33.3); Mean Corpuscular Volume 90.4 fL (83.0-100.0); Mean Platelet Volume 9.1 fL (9.4-12.4); Platelet Count 236 K/mcL (140-400); Red Blood Count 3.75 M/mcL (3.82-4.97); Red Cell Distribution Width 13.2 % (11.5-14.5); White Blood Count 10.6 K/mcL (4.3-11.1)
[2021-07-07 05:15] LABS: Alanine Aminotransferase 11 Units/L (7-52); Albumin 3.7 g/dL (3.5-5.7); Albumin/Globulin Ratio 1.1 (1.1-2.2); Alkaline Phosphatase 66 Units/L (34-104); Aspartate Amino Transferase 19 Units/L (13-39); BUN/Creatinine Ratio 36 (6-26); Bilirubin,Total 0.7 mg/dL (0.3-1.0); Blood Urea Nitrogen 24 mg/dL (8-23); C-Reactive Protein 252 mg/L (Less than 10); Calcium 10.3 mg/dL (8.6-10.3); Carbon Dioxide 28 mEq/L (23-29); Chloride 97 mEq/L (98-107); Globulin 3.3 g/dL (2.4-3.5); Glucose 100 mg/dL (70-105); Osmolality,Calculated 276 (280-300); Sodium 131 mEq/L (136-145); eGFR For African Americans > 60 (> 60); eGFR For Non-African Americans > 60 (> 60)
[2021-07-07] MEDS: *HR* Enoxaparin 40 MG/0.4 ML SYRINGE SQ SCH (05:35)
[2021-07-07] MEDS: Budesonide/Formoterol 160/4.5 1 PUFF INH IH SCH ×2 (07:49→20:22)
[2021-07-07] MEDS: Acetaminophen 325 MG TABLET PO PRN (08:42)
[2021-07-07] MEDS: Sennosides/Docusate Sodium TABLET PO SCH ×2 (08:42→20:53)
[2021-07-07] MEDS: BuPROPion XL (24 HR) 150 MG TABLET PO SCH (08:42)
[2021-07-07] MEDS: Saliva Stimulant 44.3ml BOTTLE PO SCH ×4 (08:43→19:38)
[2021-07-07] MEDS: Artificial Tears SOLN 15 ML BOTTLE BOTH EYES SCH ×4 (08:43→19:37)
[2021-07-07] MEDS: Cholecalciferol (D-3) 1,000 UNIT (25MCG) TABLET PO SCH (08:43)
[2021-07-07] MEDS: Saline Nasal Spray 44 ML BOTTLE NS SCH ×4 (08:43→19:37)
[2021-07-07] MEDS: Lacri-Lube 3.5 GM TUBE BOTH EYES SCH ×2 (08:43→19:38)
[2021-07-07] MEDS: Loratadine 10 MG TABLET PO SCH (08:43)
[2021-07-07] MEDS: PARoxetine 20 MG TABLET PO SCH (08:43)
[2021-07-07] MEDS: polyethylene glycoL 3350 17 GM POWD.PACK PO SCH (08:44)
[2021-07-07] MEDS: Ondansetron 4 MG/2 ML VIAL IVP PRN (13:13)
[2021-07-07] MEDS: levoFLOXacin 750 MG/150 ML 750 MG/150 ML BAG IVPB SCH (13:13)
[2021-07-07] MEDS: MethylPREDNISolone 40 MG/ML VIAL IVP SCH (19:37)
[2021-07-08] MEDS: Ipratropium 1 PUFF INHALER IH SCH ×6 (00:32→20:10)
[2021-07-08] MEDS ORDERED: Albumin 25% 25gram/100mL 25 GM/100 ML IV.SOLN IVPB ONE (03:13)
[2021-07-08] MEDS: *HR* Enoxaparin 40 MG/0.4 ML SYRINGE SQ SCH (05:04)
[2021-07-08] MEDS: MethylPREDNISolone 40 MG/ML VIAL IVP SCH ×2 (05:04→17:24)
[2021-07-08 05:27] LABS: ABG Base Excess 1 mEq/L (-2 to 3); ABG HCO3 25 mEq/L (21-27); ABG Oxygen Saturation 94 % (95-98); ABG PCO2 35 mmHg (35-45); ABG PH 7.46 pH Units (7.32-7.45); ABG PO2 69 mmHg (85-104); ABG TCO2 26 mEq/L (20-26); Blood Gas Modality 55LPM
[2021-07-08] MEDS: Budesonide/Formoterol 160/4.5 1 PUFF INH IH SCH ×2 (07:42→20:10)
[2021-07-08] MEDS: Lacri-Lube 3.5 GM TUBE BOTH EYES SCH ×2 (09:25→21:15)
[2021-07-08] MEDS: Saline Nasal Spray 44 ML BOTTLE NS SCH ×4 (09:25→21:15)
[2021-07-08] MEDS: Saliva Stimulant 44.3ml BOTTLE PO SCH ×4 (09:25→21:15)
[2021-07-08] MEDS: Artificial Tears SOLN 15 ML BOTTLE BOTH EYES SCH ×4 (09:25→21:15)
[2021-07-08 09:28] LABS: Hemoglobin 10.4 g/dL (11.5-15.4); Mean Corpuscular HGB Conc 32.5 g/dL (31.6-35.5); Mean Corpuscular Hemoglobin 29.6 pg (28.0-33.3); Mean Corpuscular Volume 91.2 fL (83.0-100.0); Platelet Count 225 K/mcL (140-400); Red Blood Count 3.51 M/mcL (3.82-4.97); Red Cell Distribution Width 13.4 % (11.5-14.5); White Blood Count 8.1 K/mcL (4.3-11.1)
[2021-07-08] MEDS: polyethylene glycoL 3350 17 GM POWD.PACK PO SCH (09:32)
[2021-07-08] MEDS: Loratadine 10 MG TABLET PO SCH (09:32)
[2021-07-08] MEDS: Cholecalciferol (D-3) 1,000 UNIT (25MCG) TABLET PO SCH (09:32)
[2021-07-08] MEDS: Sennosides/Docusate Sodium TABLET PO SCH ×2 (09:32→20:54)
[2021-07-08] MEDS: BuPROPion XL (24 HR) 150 MG TABLET PO SCH (09:32)
[2021-07-08] MEDS: PARoxetine 20 MG TABLET PO SCH (09:32)
[2021-07-08 09:45] LABS: Alanine Aminotransferase 9 Units/L (7-52); Albumin 4.2 g/dL (3.5-5.7); Albumin/Globulin Ratio 1.5 (1.1-2.2); Alkaline Phosphatase 59 Units/L (34-104); Aspartate Amino Transferase 15 Units/L (13-39); BUN/Creatinine Ratio 53 (6-26); Bilirubin,Total 0.6 mg/dL (0.3-1.0); Blood Urea Nitrogen 26 mg/dL (8-23); Calcium 10.2 mg/dL (8.6-10.3); Carbon Dioxide 27 mEq/L (23-29); Chloride 99 mEq/L (98-107); Globulin 2.8 g/dL (2.4-3.5); Glucose 111 mg/dL (70-105); Osmolality,Calculated 277 (280-300); Potassium 4.1 mEq/L (3.5-5.1); Sodium 131 mEq/L (136-145); eGFR For African Americans > 60 (> 60); eGFR For Non-African Americans > 60 (> 60)
[2021-07-08 09:49] LABS: C-Reactive Protein 158 mg/L (Less than 10)
[2021-07-08] MEDS: levoFLOXacin 750 MG/150 ML 750 MG/150 ML BAG IVPB SCH (11:04)
[2021-07-09] MEDS: Ipratropium 1 PUFF INHALER IH SCH ×7 (00:04→23:47)
[2021-07-09 04:11] LABS: Hematocrit 33.3 % (35.3-44.9); Hemoglobin 11.2 g/dL (11.5-15.4); Mean Corpuscular HGB Conc 33.6 g/dL (31.6-35.5); Mean Corpuscular Hemoglobin 30.2 pg (28.0-33.3); Mean Corpuscular Volume 89.8 fL (83.0-100.0); Mean Platelet Volume 9.2 fL (9.4-12.4); Platelet Count 269 K/mcL (140-400); Red Blood Count 3.71 M/mcL (3.82-4.97); Red Cell Distribution Width 13.2 % (11.5-14.5); White Blood Count 9.9 K/mcL (4.3-11.1)
[2021-07-09 04:31] LABS: Alanine Aminotransferase 10 Units/L (7-52); Albumin 4.1 g/dL (3.5-5.7); Albumin/Globulin Ratio 1.3 (1.1-2.2); Alkaline Phosphatase 57 Units/L (34-104); Aspartate Amino Transferase 16 Units/L (13-39); BUN/Creatinine Ratio 52 (6-26); Bilirubin,Total 0.5 mg/dL (0.3-1.0); Blood Urea Nitrogen 31 mg/dL (8-23); C-Reactive Protein 100 mg/L (Less than 10); Calcium 10.3 mg/dL (8.6-10.3); Carbon Dioxide 26 mEq/L (23-29); Chloride 98 mEq/L (98-107); Globulin 3.1 g/dL (2.4-3.5); Glucose 116 mg/dL (70-105); Osmolality,Calculated 284 (280-300); Potassium 4.3 mEq/L (3.5-5.1); Sodium 133 mEq/L (136-145); Total Protein 7.2 g/dL (6.4-8.9); eGFR For African Americans > 60 (> 60); eGFR For Non-African Americans > 60 (> 60)
[2021-07-09] MEDS: Pantoprazole 40 MG VIAL IVP SCH (05:37)
[2021-07-09] MEDS: *HR* Enoxaparin 40 MG/0.4 ML SYRINGE SQ SCH (05:38)
[2021-07-09] MEDS: Levothyroxine Sodium 100 MCG VIAL IVP SCH (05:38)
[2021-07-09] MEDS: MethylPREDNISolone 40 MG/ML VIAL IVP SCH ×2 (05:38→17:35)
[2021-07-09] MEDS: PARoxetine 20 MG TABLET PO SCH (07:57)
[2021-07-09] MEDS: BuPROPion XL (24 HR) 150 MG TABLET PO SCH (07:57)
[2021-07-09] MEDS: Saliva Stimulant 44.3ml BOTTLE PO SCH ×4 (07:57→21:57)
[2021-07-09] MEDS: Loratadine 10 MG TABLET PO SCH (07:57)
[2021-07-09] MEDS: Artificial Tears SOLN 15 ML BOTTLE BOTH EYES SCH ×4 (07:57→21:57)
[2021-07-09] MEDS: Saline Nasal Spray 44 ML BOTTLE NS SCH ×4 (07:57→21:56)
[2021-07-09] MEDS: Lacri-Lube 3.5 GM TUBE BOTH EYES SCH ×2 (07:57→21:57)
[2021-07-09] MEDS: Cholecalciferol (D-3) 1,000 UNIT (25MCG) TABLET PO SCH (07:57)
[2021-07-09] MEDS: Sennosides/Docusate Sodium TABLET PO SCH ×2 (07:57→21:56)
[2021-07-09] MEDS: polyethylene glycoL 3350 17 GM POWD.PACK PO SCH (07:57)
[2021-07-09] MEDS: Budesonide/Formoterol 160/4.5 1 PUFF INH IH SCH ×2 (09:00→20:25)
[2021-07-09] MEDS: levoFLOXacin 750 MG/150 ML 750 MG/150 ML BAG IVPB SCH (11:44)
[2021-07-09] MEDS: Melatonin 3 MG TABLET PO PRN (21:56)
[2021-07-09] MEDS: Acetaminophen 325 MG TABLET PO PRN (21:56)
[2021-07-10] MEDS: Ipratropium 1 PUFF INHALER IH SCH ×5 (03:51→19:58)
[2021-07-10] MEDS: MethylPREDNISolone 40 MG/ML VIAL IVP SCH ×2 (05:45→16:55)
[2021-07-10] MEDS: Pantoprazole 40 MG VIAL IVP SCH (05:46)
[2021-07-10] MEDS: Levothyroxine Sodium 100 MCG VIAL IVP SCH (05:46)
[2021-07-10 07:23] LABS: Mean Corpuscular HGB Conc 32.4 g/dL (31.6-35.5); Mean Corpuscular Hemoglobin 29.4 pg (28.0-33.3); Mean Corpuscular Volume 90.9 fL (83.0-100.0); Mean Platelet Volume 9.4 fL (9.4-12.4); Platelet Count 260 K/mcL (140-400); Red Blood Count 3.74 M/mcL (3.82-4.97); Red Cell Distribution Width 13.5 % (11.5-14.5); White Blood Count 8.8 K/mcL (4.3-11.1)
[2021-07-10] MEDS: Budesonide/Formoterol 160/4.5 1 PUFF INH IH SCH (07:35)
[2021-07-10 07:46] LABS: Alanine Aminotransferase 10 Units/L (7-52); Albumin 3.9 g/dL (3.5-5.7); Albumin/Globulin Ratio 1.4 (1.1-2.2); Alkaline Phosphatase 60 Units/L (34-104); Aspartate Amino Transferase 16 Units/L (13-39); BUN/Creatinine Ratio 51 (6-26); Bilirubin,Total 0.4 mg/dL (0.3-1.0); Blood Urea Nitrogen 33 mg/dL (8-23); Calcium 10.2 mg/dL (8.6-10.3); Carbon Dioxide 26 mEq/L (23-29); Chloride 95 mEq/L (98-107); Globulin 2.8 g/dL (2.4-3.5); Glucose 98 mg/dL (70-105); Osmolality,Calculated 281 (280-300); Potassium 4.4 mEq/L (3.5-5.1); Sodium 132 mEq/L (136-145); Total Protein 6.7 g/dL (6.4-8.9); eGFR For African Americans > 60 (> 60); eGFR For Non-African Americans > 60 (> 60)
[2021-07-10] MEDS: Cholecalciferol (D-3) 1,000 UNIT (25MCG) TABLET PO SCH (08:25)
[2021-07-10] MEDS: Loratadine 10 MG TABLET PO SCH (08:25)
[2021-07-10] MEDS: Sennosides/Docusate Sodium TABLET PO SCH ×2 (08:25→19:56)
[2021-07-10] MEDS: Saliva Stimulant 44.3ml BOTTLE PO SCH ×4 (08:26→19:55)
[2021-07-10] MEDS: Lacri-Lube 3.5 GM TUBE BOTH EYES SCH ×2 (08:26→19:56)
[2021-07-10] MEDS: PARoxetine 20 MG TABLET PO SCH (08:26)
[2021-07-10] MEDS: Artificial Tears SOLN 15 ML BOTTLE BOTH EYES SCH ×4 (08:26→19:55)
[2021-07-10] MEDS: BuPROPion XL (24 HR) 150 MG TABLET PO SCH (08:26)
[2021-07-10] MEDS: Saline Nasal Spray 44 ML BOTTLE NS SCH ×4 (08:26→19:56)
[2021-07-10] MEDS: Acetaminophen 325 MG TABLET PO PRN ×2 (08:26→19:54)
[2021-07-10] MEDS: *HR* Enoxaparin 40 MG/0.4 ML SYRINGE SQ SCH (08:26)
[2021-07-10] MEDS: polyethylene glycoL 3350 17 GM POWD.PACK PO SCH (08:27)
[2021-07-10] MEDS: levoFLOXacin 750 MG/150 ML 750 MG/150 ML BAG IVPB SCH (11:08)
[2021-07-10] MEDS: Ondansetron 4 MG/2 ML VIAL IVP PRN (13:17)
[2021-07-10] MEDS: Melatonin 3 MG TABLET PO PRN (19:54)
[2021-07-11] MEDS: Ipratropium 1 PUFF INHALER IH SCH ×6 (00:31→19:55)
[2021-07-11] MEDS: Budesonide/Formoterol 160/4.5 1 PUFF INH IH SCH ×3 (00:31→19:55)
[2021-07-11 03:01] LABS: Hematocrit 29.2 % (35.3-44.9); Hemoglobin 9.6 g/dL (11.5-15.4); Mean Corpuscular HGB Conc 32.9 g/dL (31.6-35.5); Mean Corpuscular Hemoglobin 29.7 pg (28.0-33.3); Mean Corpuscular Volume 90.4 fL (83.0-100.0); Platelet Count 240 K/mcL (140-400); Red Blood Count 3.23 M/mcL (3.82-4.97); Red Cell Distribution Width 13.5 % (11.5-14.5); White Blood Count 10.7 K/mcL (4.3-11.1)
[2021-07-11 03:21] LABS: Alanine Aminotransferase 9 Units/L (7-52); Albumin 3.6 g/dL (3.5-5.7); Albumin/Globulin Ratio 1.3 (1.1-2.2); Alkaline Phosphatase 47 Units/L (34-104); Aspartate Amino Transferase 13 Units/L (13-39); BUN/Creatinine Ratio 39 (6-26); Bilirubin,Total 0.4 mg/dL (0.3-1.0); Blood Urea Nitrogen 24 mg/dL (8-23); C-Reactive Protein 35 mg/L (Less than 10); Calcium 9.8 mg/dL (8.6-10.3); Carbon Dioxide 25 mEq/L (23-29); Chloride 96 mEq/L (98-107); Globulin 2.8 g/dL (2.4-3.5); Glucose 104 mg/dL (70-105); Osmolality,Calculated 278 (280-300); Potassium 4.1 mEq/L (3.5-5.1); Sodium 132 mEq/L (136-145); Total Protein 6.4 g/dL (6.4-8.9); eGFR For African Americans > 60 (> 60); eGFR For Non-African Americans > 60 (> 60)
[2021-07-11] MEDS: Levothyroxine Sodium 100 MCG VIAL IVP SCH (06:45)
[2021-07-11] MEDS: Pantoprazole 40 MG VIAL IVP SCH (06:45)
[2021-07-11] MEDS: MethylPREDNISolone 40 MG/ML VIAL IVP SCH ×2 (06:46→17:56)
[2021-07-11] MEDS: polyethylene glycoL 3350 17 GM POWD.PACK PO SCH (09:19)
[2021-07-11] MEDS: BuPROPion XL (24 HR) 150 MG TABLET PO SCH (09:20)
[2021-07-11] MEDS: PARoxetine 20 MG TABLET PO SCH (09:20)
[2021-07-11] MEDS: Saline Nasal Spray 44 ML BOTTLE NS SCH ×4 (09:20→21:04)
[2021-07-11] MEDS: Sennosides/Docusate Sodium TABLET PO SCH ×2 (09:20→21:06)
[2021-07-11] MEDS: *HR* Enoxaparin 40 MG/0.4 ML SYRINGE SQ SCH (09:20)
[2021-07-11] MEDS: Cholecalciferol (D-3) 1,000 UNIT (25MCG) TABLET PO SCH (09:20)
[2021-07-11] MEDS: Loratadine 10 MG TABLET PO SCH (09:20)
[2021-07-11] MEDS: Lacri-Lube 3.5 GM TUBE BOTH EYES SCH ×2 (09:21→21:05)
[2021-07-11] MEDS: Artificial Tears SOLN 15 ML BOTTLE BOTH EYES SCH ×4 (09:21→21:03)
[2021-07-11] MEDS: Saliva Stimulant 44.3ml BOTTLE PO SCH ×4 (09:21→21:04)
[2021-07-11] MEDS: levoFLOXacin 750 MG/150 ML 750 MG/150 ML BAG IVPB SCH (11:03)
[2021-07-12] MEDS: Ipratropium 1 PUFF INHALER IH SCH ×6 (00:17→21:27)
[2021-07-12 01:28] LABS: Hematocrit 29.2 % (35.3-44.9); Hemoglobin 9.6 g/dL (11.5-15.4); Mean Corpuscular HGB Conc 32.9 g/dL (31.6-35.5); Mean Corpuscular Hemoglobin 30.1 pg (28.0-33.3); Mean Corpuscular Volume 91.5 fL (83.0-100.0); Mean Platelet Volume 8.6 fL (9.4-12.4); Platelet Count 218 K/mcL (140-400); Red Blood Count 3.19 M/mcL (3.82-4.97); Red Cell Distribution Width 13.9 % (11.5-14.5); White Blood Count 10.2 K/mcL (4.3-11.1)
[2021-07-12 01:49] LABS: Alanine Aminotransferase 8 Units/L (7-52); Albumin 3.5 g/dL (3.5-5.7); Albumin/Globulin Ratio 1.3 (1.1-2.2); Alkaline Phosphatase 49 Units/L (34-104); Aspartate Amino Transferase 13 Units/L (13-39); BUN/Creatinine Ratio 44 (6-26); Bilirubin,Total 0.4 mg/dL (0.3-1.0); Blood Urea Nitrogen 24 mg/dL (8-23); Calcium 9.6 mg/dL (8.6-10.3); Carbon Dioxide 27 mEq/L (23-29); Chloride 99 mEq/L (98-107); Globulin 2.6 g/dL (2.4-3.5); Glucose 100 mg/dL (70-105); Osmolality,Calculated 274 (280-300); Potassium 4.5 mEq/L (3.5-5.1); Sodium 130 mEq/L (136-145); Total Protein 6.1 g/dL (6.4-8.9); eGFR For African Americans > 60 (> 60); eGFR For Non-African Americans > 60 (> 60)
[2021-07-12] MEDS: MethylPREDNISolone 40 MG/ML VIAL IVP SCH (05:34)
[2021-07-12] MEDS: Levothyroxine Sodium 100 MCG VIAL IVP SCH (05:36)
[2021-07-12] MEDS: Pantoprazole 40 MG VIAL IVP SCH (05:39)
[2021-07-12] MEDS: *HR* Enoxaparin 40 MG/0.4 ML SYRINGE SQ SCH (05:43)
[2021-07-12] MEDS: Budesonide/Formoterol 160/4.5 1 PUFF INH IH SCH ×2 (07:56→21:27)
[2021-07-12] MEDS: Cholecalciferol (D-3) 1,000 UNIT (25MCG) TABLET PO SCH (09:44)
[2021-07-12] MEDS: Saliva Stimulant 44.3ml BOTTLE PO SCH ×4 (09:44→21:22)
[2021-07-12] MEDS: Saline Nasal Spray 44 ML BOTTLE NS SCH ×4 (09:44→21:22)
[2021-07-12] MEDS: Artificial Tears SOLN 15 ML BOTTLE BOTH EYES SCH ×4 (09:44→21:21)
[2021-07-12] MEDS: Sennosides/Docusate Sodium TABLET PO SCH ×2 (09:44→21:20)
[2021-07-12] MEDS: PARoxetine 20 MG TABLET PO SCH (09:45)
[2021-07-12] MEDS: Lacri-Lube 3.5 GM TUBE BOTH EYES SCH ×2 (09:45→21:22)
[2021-07-12] MEDS: BuPROPion XL (24 HR) 150 MG TABLET PO SCH (09:45)
[2021-07-12] MEDS: Loratadine 10 MG TABLET PO SCH (09:45)
[2021-07-12] MEDS: polyethylene glycoL 3350 17 GM POWD.PACK PO SCH (09:45)
[2021-07-12] MEDS: predniSONE 20 MG TABLET PO SCH ×2 (09:47→16:25)
[2021-07-12] MEDS ORDERED: levoFLOXacin 750 MG TABLET PO SCH (11:00)
[2021-07-12] MEDS: Acetaminophen 325 MG TABLET PO PRN (16:25)
[2021-07-13] MEDS: Ipratropium 1 PUFF INHALER IH SCH ×4 (00:14→11:32)
[2021-07-13 05:04] LABS: Basophils # 0.1 K/mcL (0.0-0.2); Basophils % 0.4 %; Hematocrit 28.4 % (35.3-44.9); Hemoglobin 9.5 g/dL (11.5-15.4); Immature Granulocytes % 3.7 % (0-4); Lymphocytes # 1.3 K/mcL (0.6-4.6); Lymphocytes % 9.2 %; Mean Corpuscular HGB Conc 33.5 g/dL (31.6-35.5); Mean Corpuscular Hemoglobin 29.7 pg (28.0-33.3); Mean Corpuscular Volume 88.8 fL (83.0-100.0); Mean Platelet Volume 8.8 fL (9.4-12.4); Monocytes # 0.6 K/mcL (0.0-1.3); Monocytes % 4.3 %; Platelet Count 234 K/mcL (140-400); Segmented Neutrophils % 82.4 %; White Blood Count 14.5 K/mcL (4.3-11.1)
[2021-07-13 05:31] LABS: BUN/Creatinine Ratio 44 (6-26); Blood Urea Nitrogen 23 mg/dL (8-23); Calcium 9.7 mg/dL (8.6-10.3); Carbon Dioxide 26 mEq/L (23-29); Chloride 97 mEq/L (98-107); Glucose 110 mg/dL (70-105); Osmolality,Calculated 278 (280-300); Potassium 4.3 mEq/L (3.5-5.1); Sodium 132 mEq/L (136-145); eGFR For African Americans > 60 (> 60); eGFR For Non-African Americans > 60 (> 60)
[2021-07-13] MEDS: *HR* Enoxaparin 40 MG/0.4 ML SYRINGE SQ SCH (05:37)
[2021-07-13] MEDS: Budesonide/Formoterol 160/4.5 1 PUFF INH IH SCH ×2 (07:40→21:23)
[2021-07-13] MEDS: Saliva Stimulant 44.3ml BOTTLE PO SCH ×4 (07:43→20:27)
[2021-07-13] MEDS: Artificial Tears SOLN 15 ML BOTTLE BOTH EYES SCH ×4 (07:43→20:27)
[2021-07-13] MEDS: Saline Nasal Spray 44 ML BOTTLE NS SCH ×4 (07:43→20:27)
[2021-07-13] MEDS: predniSONE 20 MG TABLET PO SCH (07:44)
[2021-07-13] MEDS: Sennosides/Docusate Sodium TABLET PO SCH ×2 (07:44→20:28)
[2021-07-13] MEDS: polyethylene glycoL 3350 17 GM POWD.PACK PO SCH (07:44)
[2021-07-13] MEDS: Loratadine 10 MG TABLET PO SCH (07:44)
[2021-07-13] MEDS: BuPROPion XL (24 HR) 150 MG TABLET PO SCH (07:44)
[2021-07-13] MEDS: PARoxetine 20 MG TABLET PO SCH (07:44)
[2021-07-13] MEDS: Lacri-Lube 3.5 GM TUBE BOTH EYES SCH ×2 (07:44→20:28)
[2021-07-13] MEDS: Cholecalciferol (D-3) 1,000 UNIT (25MCG) TABLET PO SCH (07:44)
[2021-07-13] MEDS ORDERED: Furosemide 20 MG/2 ML VIAL IVP SCH (13:45)
[2021-07-13] MEDS: Ipratropium/Albuterol Neb 3 ML IH SCH ×2 (16:06→21:23)
[2021-07-14] MEDS: Ipratropium/Albuterol Neb 3 ML IH SCH ×4 (03:45→20:42)
[2021-07-14] MEDS: *HR* Enoxaparin 40 MG/0.4 ML SYRINGE SQ SCH (06:20)
[2021-07-14 06:39] LABS: Basophils # 0.1 K/mcL (0.0-0.2); Basophils % 0.8 %; Eosinophils # 0.1 K/mcL (0.0-0.6); Eosinophils % 0.5 %; Hematocrit 31.7 % (35.3-44.9); Hemoglobin 10.7 g/dL (11.5-15.4); Immature Granulocytes % 5.2 % (0-4); Lymphocytes # 2.7 K/mcL (0.6-4.6); Lymphocytes % 18.6 %; Mean Corpuscular HGB Conc 33.8 g/dL (31.6-35.5); Mean Corpuscular Hemoglobin 30.7 pg (28.0-33.3); Mean Corpuscular Volume 91.1 fL (83.0-100.0); Monocytes # 0.7 K/mcL (0.0-1.3); Neutrophils # 10.3 K/mcL (1.6-8.9); Platelet Count 267 K/mcL (140-400); Red Blood Count 3.48 M/mcL (3.82-4.97); Red Cell Distribution Width 14.5 % (11.5-14.5); Segmented Neutrophils % 69.9 %; White Blood Count 14.7 K/mcL (4.3-11.1)
[2021-07-14 06:50] LABS: Platelet Estimate Normal (Normal)
[2021-07-14 06:56] LABS: Alanine Aminotransferase 8 Units/L (7-52); Albumin 3.4 g/dL (3.5-5.7); Albumin/Globulin Ratio 1.4 (1.1-2.2); Alkaline Phosphatase 47 Units/L (34-104); Aspartate Amino Transferase 12 Units/L (13-39); BUN/Creatinine Ratio 51 (6-26); Bilirubin,Total 0.4 mg/dL (0.3-1.0); Blood Urea Nitrogen 28 mg/dL (8-23); Calcium 9.5 mg/dL (8.6-10.3); Carbon Dioxide 28 mEq/L (23-29); Chloride 97 mEq/L (98-107); Globulin 2.4 g/dL (2.4-3.5); Glucose 73 mg/dL (70-105); Osmolality,Calculated 280 (280-300); Potassium 3.6 mEq/L (3.5-5.1); Sodium 133 mEq/L (136-145); Total Protein 5.8 g/dL (6.4-8.9); eGFR For African Americans > 60 (> 60); eGFR For Non-African Americans > 60 (> 60)
[2021-07-14] MEDS ORDERED: Isovue-370 500 ML BOTTLE IVP ONE (07:48)
[2021-07-14] MEDS: polyethylene glycoL 3350 17 GM POWD.PACK PO SCH (07:59)
[2021-07-14] MEDS: BuPROPion XL (24 HR) 150 MG TABLET PO SCH (08:23)
[2021-07-14] MEDS: Artificial Tears SOLN 15 ML BOTTLE BOTH EYES SCH ×4 (08:23→20:06)
[2021-07-14] MEDS: Furosemide 20 MG/2 ML VIAL IVP SCH ×2 (08:23→15:55)
[2021-07-14] MEDS: Saliva Stimulant 44.3ml BOTTLE PO SCH ×4 (08:23→20:08)
[2021-07-14] MEDS: predniSONE 20 MG TABLET PO SCH (08:24)
[2021-07-14] MEDS: Loratadine 10 MG TABLET PO SCH (08:24)
[2021-07-14] MEDS: Sennosides/Docusate Sodium TABLET PO SCH ×2 (08:24→20:06)
[2021-07-14] MEDS: Cholecalciferol (D-3) 1,000 UNIT (25MCG) TABLET PO SCH (08:24)
[2021-07-14] MEDS: PARoxetine 20 MG TABLET PO SCH (08:24)
[2021-07-14] MEDS: Lacri-Lube 3.5 GM TUBE BOTH EYES SCH ×2 (08:25→20:08)
[2021-07-14] MEDS: Saline Nasal Spray 44 ML BOTTLE NS SCH ×4 (08:25→20:07)
[2021-07-14] MEDS: Budesonide/Formoterol 160/4.5 1 PUFF INH IH SCH ×2 (10:29→20:42)
[2021-07-15] MEDS: Ipratropium/Albuterol Neb 3 ML IH SCH ×4 (04:03→20:46)
[2021-07-15 04:40] LABS: Basophils # 0.2 K/mcL (0.0-0.2); Basophils % 1.2 %; Eosinophils % 0.1 %; Hematocrit 33.7 % (35.3-44.9); Hemoglobin 11.3 g/dL (11.5-15.4); Lymphocytes # 2.3 K/mcL (0.6-4.6); Lymphocytes % 15.5 %; Mean Corpuscular HGB Conc 33.5 g/dL (31.6-35.5); Mean Corpuscular Hemoglobin 30.1 pg (28.0-33.3); Mean Corpuscular Volume 89.6 fL (83.0-100.0); Monocytes # 0.7 K/mcL (0.0-1.3); Monocytes % 4.8 %; Neutrophils # 10.9 K/mcL (1.6-8.9); Nucleated Red Blood Cells 0.1 /100 WBC (0); Platelet Count 288 K/mcL (140-400); Red Blood Count 3.76 M/mcL (3.82-4.97); Red Cell Distribution Width 14.6 % (11.5-14.5); Segmented Neutrophils % 73.4 %; White Blood Count 14.8 K/mcL (4.3-11.1)
[2021-07-15 04:59] LABS: Alanine Aminotransferase 8 Units/L (7-52); Albumin 3.6 g/dL (3.5-5.7); Albumin/Globulin Ratio 1.3 (1.1-2.2); Alkaline Phosphatase 53 Units/L (34-104); Aspartate Amino Transferase 15 Units/L (13-39); BUN/Creatinine Ratio 62 (6-26); Bilirubin,Total 0.5 mg/dL (0.3-1.0); Blood Urea Nitrogen 34 mg/dL (8-23); Calcium 9.7 mg/dL (8.6-10.3); Carbon Dioxide 26 mEq/L (23-29); Chloride 93 mEq/L (98-107); Globulin 2.7 g/dL (2.4-3.5); Glucose 78 mg/dL (70-105); Osmolality,Calculated 276 (280-300); Potassium 3.6 mEq/L (3.5-5.1); Sodium 130 mEq/L (136-145); Total Protein 6.3 g/dL (6.4-8.9); eGFR For African Americans > 60 (> 60); eGFR For Non-African Americans > 60 (> 60)
[2021-07-15] MEDS: *HR* Enoxaparin 40 MG/0.4 ML SYRINGE SQ SCH (06:11)
[2021-07-15] MEDS: Saliva Stimulant 44.3ml BOTTLE PO SCH ×4 (07:32→19:24)
[2021-07-15] MEDS: Saline Nasal Spray 44 ML BOTTLE NS SCH ×4 (07:32→19:24)
[2021-07-15] MEDS: polyethylene glycoL 3350 17 GM POWD.PACK PO SCH (07:32)
[2021-07-15] MEDS: Lacri-Lube 3.5 GM TUBE BOTH EYES SCH ×2 (07:32→19:24)
[2021-07-15] MEDS: Artificial Tears SOLN 15 ML BOTTLE BOTH EYES SCH ×4 (07:32→19:24)
[2021-07-15] MEDS: predniSONE 20 MG TABLET PO SCH (07:33)
[2021-07-15] MEDS: Loratadine 10 MG TABLET PO SCH (07:33)
[2021-07-15] MEDS: Furosemide 20 MG/2 ML VIAL IVP SCH ×2 (07:33→16:04)
[2021-07-15] MEDS: Sennosides/Docusate Sodium TABLET PO SCH ×2 (07:33→19:25)
[2021-07-15] MEDS: PARoxetine 20 MG TABLET PO SCH (07:33)
[2021-07-15] MEDS: Cholecalciferol (D-3) 1,000 UNIT (25MCG) TABLET PO SCH (07:33)
[2021-07-15] MEDS: BuPROPion XL (24 HR) 150 MG TABLET PO SCH (07:34)
[2021-07-15] MEDS: Budesonide/Formoterol 160/4.5 1 PUFF INH IH SCH ×2 (10:09→20:46)
[2021-07-16 01:20] LABS: Basophils # 0.1 K/mcL (0.0-0.2); Basophils % 0.6 %; Hematocrit 42.2 % (35.3-44.9); Lymphocytes # 0.6 K/mcL (0.6-4.6); Lymphocytes % 2.4 %; Mean Corpuscular HGB Conc 31.3 g/dL (31.6-35.5); Mean Corpuscular Hemoglobin 28.4 pg (28.0-33.3); Mean Corpuscular Volume 90.8 fL (83.0-100.0); Mean Platelet Volume 11.5 fL (9.4-12.4); Monocytes # 0.6 K/mcL (0.0-1.3); Monocytes % 2.5 %; Neutrophils # 21.6 K/mcL (1.6-8.9); Nucleated Red Blood Cells 0.4 /100 WBC (0); Platelet Count 166 K/mcL (140-400); Red Blood Count 4.65 M/mcL (3.82-4.97); Red Cell Distribution Width 17.6 % (11.5-14.5); Segmented Neutrophils % 91.5 %
[2021-07-16 01:25] LABS: White Blood Count 23.6 K/mcL (4.3-11.1)
[2021-07-16 01:26] LABS: Hemoglobin 13.2 g/dL (11.5-15.4)
[2021-07-16 01:55] LABS: Platelet Estimate Normal (Normal)
[2021-07-16 02:02] LABS: Alanine Aminotransferase 16 Units/L (7-52); Albumin 2.8 g/dL (3.5-5.7); Albumin/Globulin Ratio 0.6 (1.1-2.2); Alkaline Phosphatase 107 Units/L (34-104); Aspartate Amino Transferase 28 Units/L (13-39); BUN/Creatinine Ratio 32 (6-26); Bilirubin,Total 0.9 mg/dL (0.3-1.0); Blood Urea Nitrogen 53 mg/dL (8-23); C-Reactive Protein > 300 mg/L (Less than 10); Calcium 8.5 mg/dL (8.6-10.3); Carbon Dioxide 21 mEq/L (23-29); Chloride 105 mEq/L (98-107); Ferritin 793 ng/mL (10-120); Globulin 4.6 g/dL (2.4-3.5); Glucose 216 mg/dL (70-105); Lactate Dehydrogenase 357 Units/L (140-271); Magnesium 2.2 mg/dL (1.6-2.6); Osmolality,Calculated 299 (280-300); Potassium 4.5 mEq/L (3.5-5.1); Sodium 134 mEq/L (136-145); Total Protein 7.4 g/dL (6.4-8.9); eGFR For African Americans 37 (> 60); eGFR For Non-African Americans 31 (> 60)
[2021-07-16] MEDS: Ipratropium/Albuterol Neb 3 ML IH SCH ×4 (04:14→19:58)
[2021-07-16] MEDS: *HR* Enoxaparin 30 MG/0.3 ML SYRINGE SQ SCH (05:17)
[2021-07-16] MEDS: Budesonide/Formoterol 160/4.5 1 PUFF INH IH SCH ×2 (07:47→19:58)
[2021-07-16] MEDS: Saline Nasal Spray 44 ML BOTTLE NS SCH ×4 (09:02→21:55)
[2021-07-16] MEDS: Artificial Tears SOLN 15 ML BOTTLE BOTH EYES SCH ×4 (09:02→21:56)
[2021-07-16] MEDS: polyethylene glycoL 3350 17 GM POWD.PACK PO SCH (09:02)
[2021-07-16] MEDS: Saliva Stimulant 44.3ml BOTTLE PO SCH ×4 (09:02→21:56)
[2021-07-16] MEDS: Lacri-Lube 3.5 GM TUBE BOTH EYES SCH ×2 (09:02→21:56)
[2021-07-16] MEDS: Sennosides/Docusate Sodium TABLET PO SCH ×2 (09:03→21:54)
[2021-07-16] MEDS: PARoxetine 20 MG TABLET PO SCH (09:04)
[2021-07-16] MEDS: BuPROPion XL (24 HR) 150 MG TABLET PO SCH (09:04)
[2021-07-16] MEDS: Loratadine 10 MG TABLET PO SCH (09:04)
[2021-07-16] MEDS: Cholecalciferol (D-3) 1,000 UNIT (25MCG) TABLET PO SCH (09:04)
[2021-07-16] MEDS: predniSONE 20 MG TABLET PO SCH (09:04)
[2021-07-16] MEDS: levoFLOXacin 750 MG/150 ML 750 MG/150 ML BAG IVPB SCH (18:33)
[2021-07-16] MEDS: Cefepime HCl 2,000 MG in 0.9 % Sodium Chloride Mini Bag 100 ML IVPB SCH (18:33)
[2021-07-17] MEDS: Cefepime HCl 2,000 MG in 0.9 % Sodium Chloride Mini Bag 100 ML IVPB SCH ×3 (01:44→19:08)
[2021-07-17 02:36] LABS: Basophils # 0.1 K/mcL (0.0-0.2); Basophils % 0.6 %; Eosinophils % 0.2 %; Hematocrit 37.2 % (35.3-44.9); Hemoglobin 12.5 g/dL (11.5-15.4); Immature Granulocytes % 3.9 % (0-4); Lymphocytes # 2.9 K/mcL (0.6-4.6); Mean Corpuscular HGB Conc 33.6 g/dL (31.6-35.5); Mean Corpuscular Hemoglobin 30.4 pg (28.0-33.3); Mean Corpuscular Volume 90.5 fL (83.0-100.0); Mean Platelet Volume 9.1 fL (9.4-12.4); Monocytes # 0.8 K/mcL (0.0-1.3); Monocytes % 4.6 %; Neutrophils # 12.6 K/mcL (1.6-8.9); Platelet Count 342 K/mcL (140-400); Red Blood Count 4.11 M/mcL (3.82-4.97); Red Cell Distribution Width 14.8 % (11.5-14.5); Segmented Neutrophils % 73.7 %; White Blood Count 17.1 K/mcL (4.3-11.1)
[2021-07-17 02:57] LABS: Alanine Aminotransferase 9 Units/L (7-52); Albumin 3.6 g/dL (3.5-5.7); Albumin/Globulin Ratio 1.3 (1.1-2.2); Alkaline Phosphatase 51 Units/L (34-104); Aspartate Amino Transferase 15 Units/L (13-39); BUN/Creatinine Ratio 68 (6-26); Bilirubin,Total 0.9 mg/dL (0.3-1.0); Blood Urea Nitrogen 46 mg/dL (8-23); Calcium 9.6 mg/dL (8.6-10.3); Carbon Dioxide 27 mEq/L (23-29); Chloride 96 mEq/L (98-107); Globulin 2.7 g/dL (2.4-3.5); Glucose 72 mg/dL (70-105); Osmolality,Calculated 288 (280-300); Potassium 3.8 mEq/L (3.5-5.1); Sodium 134 mEq/L (136-145); Total Protein 6.3 g/dL (6.4-8.9); eGFR For African Americans > 60 (> 60); eGFR For Non-African Americans > 60 (> 60)
[2021-07-17] MEDS: Ipratropium/Albuterol Neb 3 ML IH SCH ×4 (04:12→19:48)
[2021-07-17] MEDS: *HR* Enoxaparin 30 MG/0.3 ML SYRINGE SQ SCH (05:59)
[2021-07-17] MEDS ORDERED: Furosemide 20 MG/2 ML VIAL IVP SCH (09:00)
[2021-07-17] MEDS: levoFLOXacin 750 MG/150 ML 750 MG/150 ML BAG IVPB SCH (10:30)
[2021-07-17] MEDS: Cholecalciferol (D-3) 1,000 UNIT (25MCG) TABLET PO SCH (10:30)
[2021-07-17] MEDS: Loratadine 10 MG TABLET PO SCH (10:30)
[2021-07-17] MEDS: predniSONE 20 MG TABLET PO SCH (10:30)
[2021-07-17] MEDS: Sennosides/Docusate Sodium TABLET PO SCH ×2 (10:30→21:01)
[2021-07-17] MEDS: Saline Nasal Spray 44 ML BOTTLE NS SCH ×4 (10:31→21:01)
[2021-07-17] MEDS: PARoxetine 20 MG TABLET PO SCH (10:31)
[2021-07-17] MEDS: polyethylene glycoL 3350 17 GM POWD.PACK PO SCH (10:31)
[2021-07-17] MEDS: BuPROPion XL (24 HR) 150 MG TABLET PO SCH (10:31)
[2021-07-17] MEDS: Artificial Tears SOLN 15 ML BOTTLE BOTH EYES SCH ×4 (10:31→21:01)
[2021-07-17] MEDS: Saliva Stimulant 44.3ml BOTTLE PO SCH ×4 (10:31→21:01)
[2021-07-17] MEDS: Lacri-Lube 3.5 GM TUBE BOTH EYES SCH ×2 (10:32→21:01)
[2021-07-17] MEDS: Budesonide/Formoterol 160/4.5 1 PUFF INH IH SCH ×2 (11:10→19:48)
[2021-07-18] MEDS: Ipratropium/Albuterol Neb 3 ML IH SCH ×4 (02:54→19:46)
[2021-07-18] MEDS: Cefepime HCl 2,000 MG in 0.9 % Sodium Chloride Mini Bag 100 ML IVPB SCH ×3 (03:03→17:42)
[2021-07-18 04:27] LABS: Basophils % 0.4 %; Hematocrit 31.6 % (35.3-44.9); Immature Granulocytes % 2.5 % (0-4); Lymphocytes # 0.9 K/mcL (0.6-4.6); Lymphocytes % 9.4 %; Mean Corpuscular HGB Conc 33.5 g/dL (31.6-35.5); Mean Corpuscular Hemoglobin 31.1 pg (28.0-33.3); Mean Corpuscular Volume 92.7 fL (83.0-100.0); Mean Platelet Volume 9.2 fL (9.4-12.4); Monocytes # 0.2 K/mcL (0.0-1.3); Monocytes % 2.6 %; Neutrophils # 7.8 K/mcL (1.6-8.9); Platelet Count 265 K/mcL (140-400); Red Blood Count 3.41 M/mcL (3.82-4.97); Red Cell Distribution Width 14.9 % (11.5-14.5); Segmented Neutrophils % 85.1 %; White Blood Count 9.2 K/mcL (4.3-11.1)
[2021-07-18 04:29] LABS: Hemoglobin 10.6 g/dL (11.5-15.4)
[2021-07-18 04:46] LABS: Alanine Aminotransferase 8 Units/L (7-52); Albumin 3.3 g/dL (3.5-5.7); Albumin/Globulin Ratio 1.3 (1.1-2.2); Alkaline Phosphatase 49 Units/L (34-104); Aspartate Amino Transferase 15 Units/L (13-39); BUN/Creatinine Ratio 66 (6-26); Bilirubin,Total 0.6 mg/dL (0.3-1.0); Blood Urea Nitrogen 38 mg/dL (8-23); Calcium 8.9 mg/dL (8.6-10.3); Carbon Dioxide 27 mEq/L (23-29); Chloride 98 mEq/L (98-107); Globulin 2.6 g/dL (2.4-3.5); Glucose 104 mg/dL (70-105); Osmolality,Calculated 285 (280-300); Potassium 3.6 mEq/L (3.5-5.1); Sodium 133 mEq/L (136-145); Total Protein 5.9 g/dL (6.4-8.9); eGFR For African Americans > 60 (> 60); eGFR For Non-African Americans > 60 (> 60)
[2021-07-18] MEDS: *HR* Enoxaparin 30 MG/0.3 ML SYRINGE SQ SCH (06:24)
[2021-07-18] MEDS: Saline Nasal Spray 44 ML BOTTLE NS SCH ×4 (08:07→20:10)
[2021-07-18] MEDS: Saliva Stimulant 44.3ml BOTTLE PO SCH ×4 (08:07→20:10)
[2021-07-18] MEDS: Artificial Tears SOLN 15 ML BOTTLE BOTH EYES SCH ×4 (08:07→20:10)
[2021-07-18] MEDS: Sennosides/Docusate Sodium TABLET PO SCH ×2 (08:08→20:10)
[2021-07-18] MEDS: Budesonide/Formoterol 160/4.5 1 PUFF INH IH SCH ×2 (08:08→19:46)
[2021-07-18] MEDS: levoFLOXacin 750 MG/150 ML 750 MG/150 ML BAG IVPB SCH (08:08)
[2021-07-18] MEDS: polyethylene glycoL 3350 17 GM POWD.PACK PO SCH (08:08)
[2021-07-18] MEDS: Loratadine 10 MG TABLET PO SCH (08:09)
[2021-07-18] MEDS: PARoxetine 20 MG TABLET PO SCH (08:09)
[2021-07-18] MEDS: predniSONE 20 MG TABLET PO SCH (08:09)
[2021-07-18] MEDS: Cholecalciferol (D-3) 1,000 UNIT (25MCG) TABLET PO SCH (08:09)
[2021-07-18] MEDS: BuPROPion XL (24 HR) 150 MG TABLET PO SCH (08:09)
[2021-07-18] MEDS: Lacri-Lube 3.5 GM TUBE BOTH EYES SCH ×2 (08:10→20:09)
[2021-07-18] MEDS: Furosemide 20 MG/2 ML VIAL IVP SCH (12:26)
[2021-07-18] MEDS: Ondansetron 4 MG/2 ML VIAL IVP PRN (18:00)
[2021-07-19] MEDS: Cefepime HCl 2,000 MG in 0.9 % Sodium Chloride Mini Bag 100 ML IVPB SCH ×3 (03:15→22:42)
[2021-07-19] MEDS: Ipratropium/Albuterol Neb 3 ML IH SCH ×4 (03:58→22:13)
[2021-07-19] MEDS: *HR* Enoxaparin 30 MG/0.3 ML SYRINGE SQ SCH (06:09)
[2021-07-19 06:47] LABS: Basophils # 0.1 K/mcL (0.0-0.2); Basophils % 0.5 %; Eosinophils % 0.3 %; Hematocrit 32.3 % (35.3-44.9); Hemoglobin 10.5 g/dL (11.5-15.4); Immature Granulocytes % 2.1 % (0-4); Lymphocytes # 1.8 K/mcL (0.6-4.6); Mean Corpuscular HGB Conc 32.5 g/dL (31.6-35.5); Mean Corpuscular Hemoglobin 29.8 pg (28.0-33.3); Mean Corpuscular Volume 91.8 fL (83.0-100.0); Monocytes # 0.7 K/mcL (0.0-1.3); Monocytes % 6.4 %; Neutrophils # 8.3 K/mcL (1.6-8.9); Platelet Count 270 K/mcL (140-400); Red Blood Count 3.52 M/mcL (3.82-4.97); Red Cell Distribution Width 14.7 % (11.5-14.5); Segmented Neutrophils % 74.7 %; White Blood Count 11.1 K/mcL (4.3-11.1)
[2021-07-19 07:05] LABS: Alanine Aminotransferase 8 Units/L (7-52); Albumin 3.5 g/dL (3.5-5.7); Albumin/Globulin Ratio 1.4 (1.1-2.2); Alkaline Phosphatase 47 Units/L (34-104); Aspartate Amino Transferase 15 Units/L (13-39); BUN/Creatinine Ratio 51 (6-26); Bilirubin,Total 0.6 mg/dL (0.3-1.0); Blood Urea Nitrogen 37 mg/dL (8-23); Calcium 8.9 mg/dL (8.6-10.3); Carbon Dioxide 27 mEq/L (23-29); Chloride 99 mEq/L (98-107); Globulin 2.5 g/dL (2.4-3.5); Glucose 80 mg/dL (70-105); Osmolality,Calculated 286 (280-300); Sodium 134 mEq/L (136-145); eGFR For African Americans > 60 (> 60); eGFR For Non-African Americans > 60 (> 60)
[2021-07-19] MEDS: Cholecalciferol (D-3) 1,000 UNIT (25MCG) TABLET PO SCH (10:46)
[2021-07-19] MEDS: Artificial Tears SOLN 15 ML BOTTLE BOTH EYES SCH ×4 (10:46→20:12)
[2021-07-19] MEDS: PARoxetine 20 MG TABLET PO SCH (10:46)
[2021-07-19] MEDS: Saliva Stimulant 44.3ml BOTTLE PO SCH ×4 (10:46→20:12)
[2021-07-19] MEDS: Loratadine 10 MG TABLET PO SCH (10:46)
[2021-07-19] MEDS: Saline Nasal Spray 44 ML BOTTLE NS SCH ×4 (10:46→20:12)
[2021-07-19] MEDS: predniSONE 20 MG TABLET PO SCH (10:47)
[2021-07-19] MEDS: polyethylene glycoL 3350 17 GM POWD.PACK PO SCH (10:47)
[2021-07-19] MEDS: BuPROPion XL (24 HR) 150 MG TABLET PO SCH (10:47)
[2021-07-19] MEDS: Furosemide 20 MG/2 ML VIAL IVP SCH (10:48)
[2021-07-19] MEDS: Lacri-Lube 3.5 GM TUBE BOTH EYES SCH ×2 (10:48→20:12)
[2021-07-19] MEDS: levoFLOXacin 750 MG/150 ML 750 MG/150 ML BAG IVPB SCH (10:49)
[2021-07-19] MEDS: Sennosides/Docusate Sodium TABLET PO SCH ×2 (10:57→20:12)
[2021-07-19] MEDS: Budesonide/Formoterol 160/4.5 1 PUFF INH IH SCH ×2 (11:05→22:14)
[2021-07-19] MEDS ORDERED: 0.9 % Sodium Chloride 1,000 ML ONE (20:29)
[2021-07-19] MEDS ORDERED: 0.9 % Sodium Chloride 250 ML IVC ONE ×3 (20:29→22:22)
[2021-07-20 00:29] LABS: Basophils % 0.3 %; Eosinophils % 0.2 %; Hematocrit 27.6 % (35.3-44.9); Hemoglobin 9.3 g/dL (11.5-15.4); Lymphocytes # 1.5 K/mcL (0.6-4.6); Lymphocytes % 14.4 %; Mean Corpuscular HGB Conc 33.7 g/dL (31.6-35.5); Mean Corpuscular Hemoglobin 31.2 pg (28.0-33.3); Mean Corpuscular Volume 92.6 fL (83.0-100.0); Mean Platelet Volume 9.1 fL (9.4-12.4); Monocytes # 0.6 K/mcL (0.0-1.3); Monocytes % 6.2 %; Neutrophils # 7.9 K/mcL (1.6-8.9); Platelet Count 238 K/mcL (140-400); Red Blood Count 2.98 M/mcL (3.82-4.97); Segmented Neutrophils % 76.9 %; White Blood Count 10.2 K/mcL (4.3-11.1)
[2021-07-20 00:47] LABS: Alanine Aminotransferase 7 Units/L (7-52); Albumin/Globulin Ratio 1.3 (1.1-2.2); Alkaline Phosphatase 39 Units/L (34-104); Aspartate Amino Transferase 13 Units/L (13-39); BUN/Creatinine Ratio 62 (6-26); Bilirubin,Total 0.4 mg/dL (0.3-1.0); Blood Urea Nitrogen 33 mg/dL (8-23); Calcium 7.7 mg/dL (8.6-10.3); Carbon Dioxide 21 mEq/L (23-29); Chloride 106 mEq/L (98-107); Globulin 2.3 g/dL (2.4-3.5); Glucose 82 mg/dL (70-105); Osmolality,Calculated 278 (280-300); Potassium 4.5 mEq/L (3.5-5.1); Sodium 131 mEq/L (136-145); Total Protein 5.3 g/dL (6.4-8.9); eGFR For African Americans > 60 (> 60); eGFR For Non-African Americans > 60 (> 60)
[2021-07-20] MEDS: Ipratropium/Albuterol Neb 3 ML IH SCH ×4 (03:41→20:38)
[2021-07-20] MEDS: *HR* Enoxaparin 30 MG/0.3 ML SYRINGE SQ SCH (06:06)
[2021-07-20] MEDS: Budesonide/Formoterol 160/4.5 1 PUFF INH IH SCH ×2 (08:01→20:38)
[2021-07-20] MEDS: Loratadine 10 MG TABLET PO SCH (09:03)
[2021-07-20] MEDS: levoFLOXacin 750 MG/150 ML 750 MG/150 ML BAG IVPB SCH (09:03)
[2021-07-20] MEDS: BuPROPion XL (24 HR) 150 MG TABLET PO SCH (09:03)
[2021-07-20] MEDS: predniSONE 20 MG TABLET PO SCH (09:03)
[2021-07-20] MEDS: Lacri-Lube 3.5 GM TUBE BOTH EYES SCH ×2 (09:04→19:50)
[2021-07-20] MEDS: PARoxetine 20 MG TABLET PO SCH (09:04)
[2021-07-20] MEDS: polyethylene glycoL 3350 17 GM POWD.PACK PO SCH (09:04)
[2021-07-20] MEDS: Cholecalciferol (D-3) 1,000 UNIT (25MCG) TABLET PO SCH (09:04)
[2021-07-20] MEDS: Saline Nasal Spray 44 ML BOTTLE NS SCH ×4 (09:04→19:49)
[2021-07-20] MEDS: Sennosides/Docusate Sodium TABLET PO SCH ×2 (09:04→19:50)
[2021-07-20] MEDS: Artificial Tears SOLN 15 ML BOTTLE BOTH EYES SCH ×4 (09:05→19:49)
[2021-07-20] MEDS: Saliva Stimulant 44.3ml BOTTLE PO SCH ×4 (09:05→19:49)
[2021-07-20] MEDS: Cefepime HCl 2,000 MG in 0.9 % Sodium Chloride Mini Bag 100 ML IVPB SCH ×2 (13:14→19:50)
[2021-07-20] MEDS: Acetaminophen 325 MG TABLET PO PRN (16:31)
[2021-07-21 00:59] LABS: Basophils # 0.1 K/mcL (0.0-0.2); Basophils % 0.5 %; Eosinophils % 0.2 %; Hematocrit 28.5 % (35.3-44.9); Hemoglobin 9.3 g/dL (11.5-15.4); Immature Granulocytes % 4.2 % (0-4); Lymphocytes # 1.4 K/mcL (0.6-4.6); Mean Corpuscular HGB Conc 32.6 g/dL (31.6-35.5); Mean Corpuscular Hemoglobin 30.9 pg (28.0-33.3); Mean Corpuscular Volume 94.7 fL (83.0-100.0); Mean Platelet Volume 8.8 fL (9.4-12.4); Monocytes # 0.6 K/mcL (0.0-1.3); Monocytes % 5.5 %; Neutrophils # 8.1 K/mcL (1.6-8.9); Platelet Count 245 K/mcL (140-400); Red Blood Count 3.01 M/mcL (3.82-4.97); Red Cell Distribution Width 15.4 % (11.5-14.5); Segmented Neutrophils % 76.6 %; White Blood Count 10.6 K/mcL (4.3-11.1)
[2021-07-21 01:22] LABS: BUN/Creatinine Ratio 56 (6-26); Blood Urea Nitrogen 25 mg/dL (8-23); Calcium 8.3 mg/dL (8.6-10.3); Carbon Dioxide 21 mEq/L (23-29); Chloride 107 mEq/L (98-107); Glucose 83 mg/dL (70-105); Osmolality,Calculated 280 (280-300); Potassium 4.4 mEq/L (3.5-5.1); Sodium 133 mEq/L (136-145); eGFR For African Americans > 60 (> 60); eGFR For Non-African Americans > 60 (> 60)
[2021-07-21] MEDS: Ipratropium/Albuterol Neb 3 ML IH SCH ×4 (04:21→20:02)
[2021-07-21] MEDS: Cefepime HCl 2,000 MG in 0.9 % Sodium Chloride Mini Bag 100 ML IVPB SCH ×3 (05:31→21:35)
[2021-07-21] MEDS: *HR* Enoxaparin 30 MG/0.3 ML SYRINGE SQ SCH (05:33)
[2021-07-21] MEDS: Budesonide/Formoterol 160/4.5 1 PUFF INH IH SCH ×2 (08:20→20:01)
[2021-07-21] MEDS: predniSONE 20 MG TABLET PO SCH (08:32)
[2021-07-21] MEDS: polyethylene glycoL 3350 17 GM POWD.PACK PO SCH (08:32)
[2021-07-21] MEDS: BuPROPion XL (24 HR) 150 MG TABLET PO SCH (08:33)
[2021-07-21] MEDS: Artificial Tears SOLN 15 ML BOTTLE BOTH EYES SCH ×4 (08:33→21:34)
[2021-07-21] MEDS: Saline Nasal Spray 44 ML BOTTLE NS SCH ×4 (08:33→21:34)
[2021-07-21] MEDS: Cholecalciferol (D-3) 1,000 UNIT (25MCG) TABLET PO SCH (08:33)
[2021-07-21] MEDS: PARoxetine 20 MG TABLET PO SCH (08:33)
[2021-07-21] MEDS: Loratadine 10 MG TABLET PO SCH (08:33)
[2021-07-21] MEDS: Sennosides/Docusate Sodium TABLET PO SCH ×2 (08:33→21:36)
[2021-07-21] MEDS: Lacri-Lube 3.5 GM TUBE BOTH EYES SCH ×2 (08:34→21:36)
[2021-07-21] MEDS: Saliva Stimulant 44.3ml BOTTLE PO SCH ×5 (08:34→21:59)
[2021-07-21] MEDS ORDERED: levoFLOXacin 750 MG TABLET PO SCH (09:00)
[2021-07-22 03:21] LABS: Basophils # 0.1 K/mcL (0.0-0.2); Basophils % 0.9 %; Eosinophils % 0.3 %; Hematocrit 30.4 % (35.3-44.9); Hemoglobin 9.6 g/dL (11.5-15.4); Immature Granulocytes % 4.2 % (0-4); Lymphocytes # 1.7 K/mcL (0.6-4.6); Lymphocytes % 17.7 %; Mean Corpuscular HGB Conc 31.6 g/dL (31.6-35.5); Mean Corpuscular Hemoglobin 30.2 pg (28.0-33.3); Mean Corpuscular Volume 95.6 fL (83.0-100.0); Mean Platelet Volume 8.9 fL (9.4-12.4); Monocytes # 0.6 K/mcL (0.0-1.3); Monocytes % 5.9 %; Platelet Count 238 K/mcL (140-400); Red Blood Count 3.18 M/mcL (3.82-4.97); Red Cell Distribution Width 15.9 % (11.5-14.5); White Blood Count 9.8 K/mcL (4.3-11.1)
[2021-07-22 03:37] LABS: BUN/Creatinine Ratio 58 (6-26); Blood Urea Nitrogen 23 mg/dL (8-23); Carbon Dioxide 19 mEq/L (23-29); Chloride 108 mEq/L (98-107); Glucose 72 mg/dL (70-105); Osmolality,Calculated 278 (280-300); Potassium 3.9 mEq/L (3.5-5.1); Sodium 133 mEq/L (136-145); eGFR For African Americans > 60 (> 60); eGFR For Non-African Americans > 60 (> 60)
[2021-07-22] MEDS: Ipratropium/Albuterol Neb 3 ML IH SCH ×4 (04:11→20:06)
[2021-07-22] MEDS: *HR* Enoxaparin 30 MG/0.3 ML SYRINGE SQ SCH (06:11)
[2021-07-22] MEDS: Budesonide/Formoterol 160/4.5 1 PUFF INH IH SCH ×2 (07:25→20:07)
[2021-07-22] MEDS: BuPROPion XL (24 HR) 150 MG TABLET PO SCH (08:19)
[2021-07-22] MEDS: PARoxetine 20 MG TABLET PO SCH (08:20)
[2021-07-22] MEDS: Loratadine 10 MG TABLET PO SCH (08:21)
[2021-07-22] MEDS: Sennosides/Docusate Sodium TABLET PO SCH ×2 (08:21→20:47)
[2021-07-22] MEDS: Cholecalciferol (D-3) 1,000 UNIT (25MCG) TABLET PO SCH (08:21)
[2021-07-22] MEDS: predniSONE 20 MG TABLET PO SCH (08:21)
[2021-07-22] MEDS: Artificial Tears SOLN 15 ML BOTTLE BOTH EYES SCH ×4 (08:22→20:48)
[2021-07-22] MEDS: Saliva Stimulant 44.3ml BOTTLE PO SCH ×4 (08:22→20:48)
[2021-07-22] MEDS: Saline Nasal Spray 44 ML BOTTLE NS SCH ×4 (08:23→20:48)
[2021-07-22] MEDS: polyethylene glycoL 3350 17 GM POWD.PACK PO SCH (08:23)
[2021-07-22] MEDS: Lacri-Lube 3.5 GM TUBE BOTH EYES SCH ×2 (08:23→20:47)
[2021-07-23] MEDS: Ipratropium/Albuterol Neb 3 ML IH SCH ×4 (03:48→21:45)
[2021-07-23] MEDS: *HR* Enoxaparin 30 MG/0.3 ML SYRINGE SQ SCH (06:18)
[2021-07-23] MEDS: BuPROPion XL (24 HR) 150 MG TABLET PO SCH (08:59)
[2021-07-23] MEDS: Sennosides/Docusate Sodium TABLET PO SCH ×2 (08:59→19:51)
[2021-07-23] MEDS: Cholecalciferol (D-3) 1,000 UNIT (25MCG) TABLET PO SCH (08:59)
[2021-07-23] MEDS: Loratadine 10 MG TABLET PO SCH (08:59)
[2021-07-23] MEDS: PARoxetine 20 MG TABLET PO SCH (09:00)
[2021-07-23] MEDS: Saline Nasal Spray 44 ML BOTTLE NS SCH ×4 (09:00→19:50)
[2021-07-23] MEDS: predniSONE 20 MG TABLET PO SCH (09:00)
[2021-07-23] MEDS: Artificial Tears SOLN 15 ML BOTTLE BOTH EYES SCH ×4 (09:01→19:51)
[2021-07-23] MEDS: Saliva Stimulant 44.3ml BOTTLE PO SCH ×4 (09:01→19:51)
[2021-07-23] MEDS: polyethylene glycoL 3350 17 GM POWD.PACK PO SCH (09:02)
[2021-07-23] MEDS: Lacri-Lube 3.5 GM TUBE BOTH EYES SCH ×2 (09:02→19:51)
[2021-07-23 09:36] LABS: Basophils # 0.1 K/mcL (0.0-0.2); Basophils % 1.1 %; Eosinophils # 0.2 K/mcL (0.0-0.6); Eosinophils % 1.9 %; Hemoglobin 10.5 g/dL (11.5-15.4); Immature Granulocytes % 4.9 % (0-4); Lymphocytes # 2.2 K/mcL (0.6-4.6); Lymphocytes % 23.7 %; Mean Corpuscular HGB Conc 32.8 g/dL (31.6-35.5); Mean Corpuscular Volume 94.4 fL (83.0-100.0); Mean Platelet Volume 8.8 fL (9.4-12.4); Monocytes # 0.6 K/mcL (0.0-1.3); Neutrophils # 5.8 K/mcL (1.6-8.9); Platelet Count 272 K/mcL (140-400); Red Blood Count 3.39 M/mcL (3.82-4.97); Red Cell Distribution Width 16.3 % (11.5-14.5); Segmented Neutrophils % 62.4 %; White Blood Count 9.4 K/mcL (4.3-11.1)
[2021-07-23 09:54] LABS: BUN/Creatinine Ratio 39 (6-26); Blood Urea Nitrogen 18 mg/dL (8-23); Calcium 8.1 mg/dL (8.6-10.3); Carbon Dioxide 20 mEq/L (23-29); Chloride 105 mEq/L (98-107); Glucose 67 mg/dL (70-105); Osmolality,Calculated 278 (280-300); Potassium 3.7 mEq/L (3.5-5.1); Sodium 134 mEq/L (136-145); eGFR For African Americans > 60 (> 60); eGFR For Non-African Americans > 60 (> 60)
[2021-07-23] MEDS: Budesonide/Formoterol 160/4.5 1 PUFF INH IH SCH ×2 (10:26→21:45)
[2021-07-24] MEDS: Ipratropium/Albuterol Neb 3 ML IH SCH ×2 (03:32→09:49)
[2021-07-24] MEDS: *HR* Enoxaparin 30 MG/0.3 ML SYRINGE SQ SCH (05:04)
[2021-07-24 06:08] LABS: Basophils # 0.1 K/mcL (0.0-0.2); Basophils % 0.6 %; Eosinophils # 0.1 K/mcL (0.0-0.6); Eosinophils % 0.6 %; Hemoglobin 9.7 g/dL (11.5-15.4); Immature Granulocytes % 4.3 % (0-4); Lymphocytes % 23.9 %; Mean Corpuscular HGB Conc 33.4 g/dL (31.6-35.5); Mean Corpuscular Hemoglobin 31.2 pg (28.0-33.3); Mean Corpuscular Volume 93.2 fL (83.0-100.0); Mean Platelet Volume 8.9 fL (9.4-12.4); Monocytes # 0.5 K/mcL (0.0-1.3); Monocytes % 6.5 %; Neutrophils # 5.2 K/mcL (1.6-8.9); Platelet Count 241 K/mcL (140-400); Red Blood Count 3.11 M/mcL (3.82-4.97); Red Cell Distribution Width 16.5 % (11.5-14.5); Segmented Neutrophils % 64.1 %; White Blood Count 8.2 K/mcL (4.3-11.1)
[2021-07-24 06:32] LABS: BUN/Creatinine Ratio 53 (6-26); Blood Urea Nitrogen 16 mg/dL (8-23); Calcium 7.9 mg/dL (8.6-10.3); Carbon Dioxide 21 mEq/L (23-29); Chloride 106 mEq/L (98-107); Glucose 71 mg/dL (70-105); Osmolality,Calculated 278 (280-300); Potassium 3.2 mEq/L (3.5-5.1); Sodium 134 mEq/L (136-145); eGFR For African Americans > 60 (> 60); eGFR For Non-African Americans > 60 (> 60)
[2021-07-24] MEDS ORDERED: Potassium Chloride Elixir 20 MEQ/15 ML UDC PO ONE (07:34)
[2021-07-24] MEDS: Saliva Stimulant 44.3ml BOTTLE PO SCH ×2 (07:45→11:15)
[2021-07-24] MEDS: Sennosides/Docusate Sodium TABLET PO SCH (08:03)
[2021-07-24] MEDS: Lacri-Lube 3.5 GM TUBE BOTH EYES SCH (08:03)
[2021-07-24] MEDS: PARoxetine 20 MG TABLET PO SCH (08:03)
[2021-07-24] MEDS: BuPROPion XL (24 HR) 150 MG TABLET PO SCH (08:03)
[2021-07-24] MEDS: Artificial Tears SOLN 15 ML BOTTLE BOTH EYES SCH ×2 (08:03→11:15)
[2021-07-24] MEDS: Cholecalciferol (D-3) 1,000 UNIT (25MCG) TABLET PO SCH (08:03)
[2021-07-24] MEDS: predniSONE 20 MG TABLET PO SCH (08:03)
[2021-07-24] MEDS: Loratadine 10 MG TABLET PO SCH (08:03)
[2021-07-24] MEDS: Saline Nasal Spray 44 ML BOTTLE NS SCH ×2 (08:04→11:15)
[2021-07-24] MEDS: polyethylene glycoL 3350 17 GM POWD.PACK PO SCH (08:04)
[2021-07-24] MEDS: Budesonide/Formoterol 160/4.5 1 PUFF INH IH SCH (09:49)
[2021-07-24 11:47] VITALS: BP 141/79; PULSE 90; TEMP 97.6; O2SAT 91
== END 2021-07-24 14:59 | disposition home health service (06) | DRG 871 ==
LOC: SUATTDRO → EMEROOARM 10:10 → 2NENU 10:10 → SUATTDRO 15:24 → 2NENU 16:20
PROVIDERS: ADMIT Internal Medicine; ATTEND Internal Medicine

== ENCOUNTER 2021-12-05 12:14 | Inpatient (IN) ==
[2021-12-05] MEDS ORDERED: Albuterol 2.5 MG/3 ML NEBULIZER IH ONE (13:12)
[2021-12-05] MEDS ORDERED: methylPREDNISolone 125 MG/2 ML VIAL IVP ONE (13:12)
[2021-12-05] MEDS ORDERED: Ipratropium/Albuterol Neb 3 ML IH ONE (13:12)
[2021-12-05 13:21] LABS: Hematocrit 40.3 % (35.3-44.9); Hemoglobin 12.7 g/dL (11.5-15.4); Mean Corpuscular HGB Conc 31.5 g/dL (31.6-35.5); Mean Corpuscular Hemoglobin 29.5 pg (28.0-33.3); Mean Corpuscular Volume 93.5 fL (83.0-100.0); Mean Platelet Volume 8.3 fL (9.4-12.4); Platelet Count 299 K/mcL (140-400); Red Blood Count 4.31 M/mcL (3.82-4.97); Red Cell Distribution Width 13.9 % (11.5-14.5); White Blood Count 13.6 K/mcL (4.3-11.1)
[2021-12-05] MEDS ORDERED: Cefepime HCl 1,000 MG in 0.9 % Sodium Chloride 10 ML IVP ONE (13:33)
[2021-12-05 13:35] LABS: VBG HCO3 27 mEq/L (21-27); VBG PCO2 49 mmHg (41-51); VBG PH 7.36 pH Units (7.32-7.42); VBG PO2 66 mmHg (25-50)
[2021-12-05 13:57] LABS: Alanine Aminotransferase 8 Units/L (7-52); Albumin 3.9 g/dL (3.5-5.7); Alkaline Phosphatase 53 Units/L (34-104); Aspartate Amino Transferase 12 Units/L (13-39); BUN/Creatinine Ratio 18 (6-26); Bilirubin,Total 0.3 mg/dL (0.3-1.0); Blood Urea Nitrogen 13 mg/dL (8-23); Calcium 10.2 mg/dL (8.6-10.3); Carbon Dioxide 29 mEq/L (23-29); Chloride 98 mEq/L (98-107); Globulin 4.1 g/dL (2.4-3.5); Glucose 110 mg/dL (70-105); Osmolality,Calculated 283 (280-300); Potassium 3.8 mEq/L (3.5-5.1); Sodium 136 mEq/L (136-145); eGFR For African Americans > 60 (> 60); eGFR For Non-African Americans > 60 (> 60)
[2021-12-05 14:09] LABS: Adenovirus Not Detected (Not Detect); Bordetella Pertussis Not Detected (Not Detect); Chlamydophila pneumoniae Not Detected (Not Detect); Coronavirus 229E Not Detected (Not Detect); Coronavirus HKU1 Not Detected (Not Detect); Coronavirus NL63 Not Detected (Not Detect); Coronavirus OC43 Not Detected (Not Detect); Human Metapneumovirus Not Detected (Not Detect); Human Rhinovirus/Enterovirus DETECTED (Not Detect); Influenza A Subtype 2009 H1 Not Detected (Not Detect); Influenza B Not Detected (Not Detect); Mycoplasma pneumoniae Not Detected (Not Detect); Parainfluenza Virus 1 Not Detected (Not Detect); Parainfluenza Virus 2 Not Detected (Not Detect); Parainfluenza Virus 3 Not Detected (Not Detect); Parainfluenza Virus 4 Not Detected (Not Detect); Respiratory Syncytial Virus Not Detected (Not Detect); SARS-CoV-2 Not Detected (Not Detect)
[2021-12-05 14:43] LABS: Lymphocytes # 1.6 K/mcL (0.6-4.6); Monocytes # 1.5 K/mcL (0.0-1.3); Neutrophils # 10.3 K/mcL (1.6-8.9); Platelet Clumps Few (Not Present); Platelet Estimate Normal (Normal); Reactive Lymphocytes Present (Not Present); Toxic Granulation Present (Not Present); Toxic Vacuolation Present (Not Present)
[2021-12-05] MEDS ORDERED: Albuterol 2.5 MG/3 ML NEBULIZER IH PRN (15:47)
[2021-12-05] MEDS ORDERED: Melatonin 3 MG TABLET PO PRN (16:16)
[2021-12-05] MEDS ORDERED: Naloxone 0.4 MG/ML INJ IVP PRN (16:16)
[2021-12-05] MEDS ORDERED: Acetaminophen 325 MG TABLET PO PRN (16:16)
[2021-12-05] MEDS ORDERED: 0.9 % Sodium Chloride 1,000 ML IVC ONE (16:32)
[2021-12-05] MEDS: Albuterol 2.5 MG/3 ML NEBULIZER IH SCH ×3 (16:58→23:28)
[2021-12-05] MEDS: MethylPREDNISolone 40 MG/ML VIAL IVP SCH (21:46)
[2021-12-05] MEDS: Megestrol Acetate 400 MG/10 ML UDC PO SCH (21:51)
[2021-12-05] MEDS: Primidone 50 MG TABLET PO SCH (21:51)
[2021-12-05] MEDS: (Omega-3/Dha/Epa/Fish Oil [Fish Oil 1,000 Mg Softgel] PO SCH (22:59)
[2021-12-06 02:02] LABS: Basophils # 0.1 K/mcL (0.0-0.2); Basophils % 0.7 %; Hematocrit 34.5 % (35.3-44.9); Lymphocytes # 1.2 K/mcL (0.6-4.6); Lymphocytes % 13.3 %; Mean Corpuscular HGB Conc 31.6 g/dL (31.6-35.5); Mean Corpuscular Hemoglobin 29.9 pg (28.0-33.3); Mean Corpuscular Volume 94.5 fL (83.0-100.0); Mean Platelet Volume 8.6 fL (9.4-12.4); Monocytes # 0.2 K/mcL (0.0-1.3); Monocytes % 1.8 %; Neutrophils # 7.3 K/mcL (1.6-8.9); Platelet Count 301 K/mcL (140-400); Red Blood Count 3.65 M/mcL (3.82-4.97); Red Cell Distribution Width 14.1 % (11.5-14.5); Segmented Neutrophils % 82.2 %; White Blood Count 8.9 K/mcL (4.3-11.1)
[2021-12-06 02:08] LABS: Hemoglobin 10.9 g/dL (11.5-15.4)
[2021-12-06 02:16] LABS: Alanine Aminotransferase 6 Units/L (7-52); Albumin 3.2 g/dL (3.5-5.7); Albumin/Globulin Ratio 0.9 (1.1-2.2); Alkaline Phosphatase 50 Units/L (34-104); Aspartate Amino Transferase 10 Units/L (13-39); BUN/Creatinine Ratio 33 (6-26); Bilirubin,Total 0.2 mg/dL (0.3-1.0); Blood Urea Nitrogen 18 mg/dL (8-23); Carbon Dioxide 27 mEq/L (23-29); Chloride 103 mEq/L (98-107); Globulin 3.7 g/dL (2.4-3.5); Glucose 131 mg/dL (70-105); Osmolality,Calculated 290 (280-300); Potassium 4.5 mEq/L (3.5-5.1); Sodium 138 mEq/L (136-145); Total Protein 6.9 g/dL (6.4-8.9); eGFR For African Americans > 60 (> 60); eGFR For Non-African Americans > 60 (> 60)
[2021-12-06 02:35] LABS: Platelet Estimate Normal (Normal); Reactive Lymphocytes Present (Not Present); Smudge Cells Present (Not Present)
[2021-12-06] MEDS: Albuterol 2.5 MG/3 ML NEBULIZER IH SCH ×6 (03:44→23:27)
[2021-12-06] MEDS: MethylPREDNISolone 40 MG/ML VIAL IVP SCH ×3 (05:48→21:38)
[2021-12-06] MEDS: Azithromycin 250 MG TABLET PO SCH ×2 (08:55→08:57)
[2021-12-06] MEDS: Cholecalciferol (D-3) 1,000 UNIT (25MCG) TABLET PO SCH (08:59)
[2021-12-06] MEDS ORDERED: (Roflumilast [Daliresp] 500 MCG Tablet) PO SCH (09:00)
[2021-12-06] MEDS: Cyanocobalamin (B-12) 1,000 MCG TABLET PO SCH (09:00)
[2021-12-06] MEDS: Megestrol Acetate 400 MG/10 ML UDC PO SCH ×3 (09:02→21:39)
[2021-12-06] MEDS: Primidone 50 MG TABLET PO SCH ×2 (09:03→21:39)
[2021-12-06] MEDS: (Omega-3/Dha/Epa/Fish Oil [Fish Oil 1,000 Mg Softgel] PO SCH (09:04)
[2021-12-06] MEDS: PARoxetine 20 MG TABLET PO SCH (09:04)
[2021-12-07 02:39] LABS: Basophils # 0.1 K/mcL (0.0-0.2); Basophils % 0.8 %; Hematocrit 32.2 % (35.3-44.9); Hemoglobin 10.4 g/dL (11.5-15.4); Immature Granulocytes % 3.7 % (0-4); Lymphocytes # 1.1 K/mcL (0.6-4.6); Mean Corpuscular HGB Conc 32.3 g/dL (31.6-35.5); Mean Corpuscular Hemoglobin 30.1 pg (28.0-33.3); Mean Corpuscular Volume 93.3 fL (83.0-100.0); Mean Platelet Volume 8.4 fL (9.4-12.4); Monocytes # 0.4 K/mcL (0.0-1.3); Monocytes % 2.9 %; Neutrophils # 10.6 K/mcL (1.6-8.9); Platelet Count 322 K/mcL (140-400); Red Blood Count 3.45 M/mcL (3.82-4.97); Red Cell Distribution Width 14.1 % (11.5-14.5); Segmented Neutrophils % 83.6 %; White Blood Count 12.7 K/mcL (4.3-11.1)
[2021-12-07 02:49] LABS: Alanine Aminotransferase 7 Units/L (7-52); Albumin 3.4 g/dL (3.5-5.7); Albumin/Globulin Ratio 1.1 (1.1-2.2); Alkaline Phosphatase 57 Units/L (34-104); Aspartate Amino Transferase 12 Units/L (13-39); BUN/Creatinine Ratio 38 (6-26); Bilirubin,Total 0.2 mg/dL (0.3-1.0); Blood Urea Nitrogen 18 mg/dL (8-23); Calcium 8.4 mg/dL (8.6-10.3); Carbon Dioxide 27 mEq/L (23-29); Chloride 102 mEq/L (98-107); Globulin 3.1 g/dL (2.4-3.5); Glucose 150 mg/dL (70-105); Osmolality,Calculated 289 (280-300); Sodium 137 mEq/L (136-145); Total Protein 6.5 g/dL (6.4-8.9); eGFR For African Americans > 60 (> 60); eGFR For Non-African Americans > 60 (> 60)
[2021-12-07] MEDS: Albuterol 2.5 MG/3 ML NEBULIZER IH SCH ×6 (03:57→23:04)
[2021-12-07] MEDS: MethylPREDNISolone 40 MG/ML VIAL IVP SCH ×2 (05:22→20:39)
[2021-12-07] MEDS: Cholecalciferol (D-3) 1,000 UNIT (25MCG) TABLET PO SCH (09:35)
[2021-12-07] MEDS: Azithromycin 250 MG TABLET PO SCH (09:36)
[2021-12-07] MEDS: Cyanocobalamin (B-12) 1,000 MCG TABLET PO SCH (09:36)
[2021-12-07] MEDS: PARoxetine 20 MG TABLET PO SCH (09:38)
[2021-12-07] MEDS: Megestrol Acetate 400 MG/10 ML UDC PO SCH ×3 (09:38→20:38)
[2021-12-07] MEDS: Primidone 50 MG TABLET PO SCH ×2 (09:38→20:38)
[2021-12-08 01:38] LABS: Basophils % 0.2 %; Hematocrit 34.6 % (35.3-44.9); Nucleated Red Blood Cells 0.3 /100 WBC (0); Red Cell Distribution Width 14.1 % (11.5-14.5)
[2021-12-08 01:40] LABS: Eosinophils % 0.2 %; Hemoglobin 11.6 g/dL (11.5-15.4); Immature Granulocytes % 7.3 % (0-4); Immature Platelets 1.3 % (1.1-6.1); Lymphocytes # 1.2 K/mcL (0.6-4.6); Lymphocytes % 11.8 %; Mean Corpuscular HGB Conc 33.5 g/dL (31.6-35.5); Mean Corpuscular Hemoglobin 30.3 pg (28.0-33.3); Mean Corpuscular Volume 90.3 fL (83.0-100.0); Mean Platelet Volume 9.1 fL (9.4-12.4); Monocytes # 0.3 K/mcL (0.0-1.3); Monocytes % 2.8 %; Platelet Count 381 K/mcL (140-400); Red Blood Count 3.83 M/mcL (3.82-4.97); Segmented Neutrophils % 77.7 %; White Blood Count 10.3 K/mcL (4.3-11.1)
[2021-12-08 01:50] LABS: Alanine Aminotransferase 7 Units/L (7-52); Albumin 3.2 g/dL (3.5-5.7); Alkaline Phosphatase 40 Units/L (34-104); Aspartate Amino Transferase 13 Units/L (13-39); BUN/Creatinine Ratio 37 (6-26); Bilirubin,Total 0.2 mg/dL (0.3-1.0); Blood Urea Nitrogen 17 mg/dL (8-23); Calcium 8.3 mg/dL (8.6-10.3); Carbon Dioxide 26 mEq/L (23-29); Chloride 102 mEq/L (98-107); Globulin 3.2 g/dL (2.4-3.5); Glucose 124 mg/dL (70-105); Osmolality,Calculated 283 (280-300); Potassium 4.5 mEq/L (3.5-5.1); Sodium 135 mEq/L (136-145); Total Protein 6.4 g/dL (6.4-8.9); eGFR For African Americans > 60 (> 60); eGFR For Non-African Americans > 60 (> 60)
[2021-12-08 02:01] LABS: Platelet Estimate Normal (Normal); Toxic Granulation Present (Not Present)
[2021-12-08] MEDS: Albuterol 2.5 MG/3 ML NEBULIZER IH SCH ×3 (04:07→11:37)
[2021-12-08] MEDS: MethylPREDNISolone 40 MG/ML VIAL IVP SCH (08:06)
[2021-12-08] MEDS: Megestrol Acetate 400 MG/10 ML UDC PO SCH (08:06)
[2021-12-08] MEDS: Primidone 50 MG TABLET PO SCH (08:07)
[2021-12-08] MEDS: Cholecalciferol (D-3) 1,000 UNIT (25MCG) TABLET PO SCH (08:08)
[2021-12-08] MEDS: Cyanocobalamin (B-12) 1,000 MCG TABLET PO SCH (08:08)
[2021-12-08] MEDS: Azithromycin 250 MG TABLET PO SCH (08:08)
[2021-12-08] MEDS: PARoxetine 20 MG TABLET PO SCH (08:09)
[2021-12-08] MEDS ORDERED: MethylPREDNISolone 40 MG/ML VIAL IVP SCH (09:00)
[2021-12-08 12:02] VITALS: BP 125/79; PULSE 81; TEMP 97.9; O2SAT 94
[2021-12-11] MEDS ORDERED: NON-FORMULARY MEDICATION 1 EACH EACH (Alendronate Sodium [Fosamax] 70 MG Tablet) PO SCH (16:17)
== END 2021-12-08 13:36 | disposition home or self-care (01) | DRG 871 ==
LOC: EMEROOARM 12:14 → 3ANU 12:14 → SUATTDRO 12-06 11:40
PROVIDERS: ADMIT Internal Medicine; ATTEND Internal Medicine